=== PATIENT | male | born 1990 | race Two or more races ===

== ENCOUNTER 2021-06-29 22:23 | Emergency (ER) | payer MEDICAID, SELFPAY ==
--- NOTE | ~2021-06-29 | XR_ITS ---
EXAMINATION: 1. LEFT ELBOW 2. LEFT FOREARM. CLINICAL INFORMATION: Injury. Fall. COMPARISON: None TECHNIQUE: 1. Left elbow. 4 views 2. Left forearm. 2 views FINDINGS: 1. Left elbow. No fracture. No dislocation. No joint effusion. 2. Left forearm. No fracture of the radius or ulna. XR/XR elbow LT 2V IMPRESSION: 1. Left elbow. Normal left elbow. 2. Left forearm. Normal left forearm.
--- NOTE | ~2021-06-29 | XR_ITS ---
EXAMINATION: 1. LEFT ELBOW 2. LEFT FOREARM. CLINICAL INFORMATION: Injury. Fall. COMPARISON: None TECHNIQUE: 1. Left elbow. 4 views 2. Left forearm. 2 views FINDINGS: 1. Left elbow. No fracture. No dislocation. No joint effusion. 2. Left forearm. No fracture of the radius or ulna. XR/XR forearm LT 2V IMPRESSION: 1. Left elbow. Normal left elbow. 2. Left forearm. Normal left forearm.
[2021-06-29 22:58] VITALS: BP 128/94; PULSE 93; RESP 18; TEMP 36.3; O2SAT 100; BMI 31.5
--- NOTE | 2021-06-30 | ED_ITS ---
HPI - Extremity Problem General Chief complaint: Extremity Injury, Upper Stated complaint: left elbow pain from sliding Time Seen by Provider: 06/30/21 00:00 History of Present Illness HPI Narrative: Patient complains of left elbow and left forearm pain after falling while snowboarding, no other injury no numbness weakness or tingling Related Data Previous Rx's Medication Instructions Recorded acetaminophen 500 mg tablet 1,000 mg PO QID PRN #30 tab 06/30/21 ibuprofen 600 mg tablet 600 mg PO Q6H PRN #20 tab 06/30/21 oxycodone 5 mg tablet 5 mg PO Q6H PRN #14 tab 06/30/21 Allergies Allergy/AdvReac Type Severity Reaction Status Date / Time animal dander [ANIMAL Allergy Intermediate HIVES Verified 06/30/21 00:10 HAIR] bee pollen [BEE Allergy Unknown SWELLING Verified 06/30/21 00:10 STINGS] bees Allergy Unknown Swelling Uncoded 06/30/21 00:10 fur Allergy Unknown Unknown Uncoded 06/30/21 00:10 Review of Systems Verdana 4l Review of Systems: Verdana 4d Verdana 4d Positive for left elbow and forearm pain Negatives are no headache no head injury no loss of consciousness no neck pain no numbness weakness or tingling no back pain no chest pain no laceration Verdana 4d Yes all other systems are reviewedreviewed and are negative PMFSH Past Medical History Source: nursing notes reviewed Social History Social History Advance Directives: No Physical Exam Verdana 4l Vital Signs: Verdana 4d Verdana 4d Vital Signs: Verdana 4d Verdana 4Bd Last Vital Signs Verdana 4d Produce Department Manager New 4d Produce Department Manager New 4d Temp 97.4 F 06/29/21 22:58 Produce Department Manager New 4d Pulse 93 06/29/21 22:58 Produce Department Manager New 4d Resp 18 06/29/21 22:58 BP 128/94 H 06/29/21 22:58 Pulse Ox 100 06/29/21 22:58 BMI result Body Mass Index 31.5 General appearance is no acute distress Head is normocephalic atraumatic Neck is supple Chest wall is nontender Respiration chest is clear to auscultation bilateral Extremities the left elbow is held in a flexed position and there is tenderness in the posterior elbow, the skin is intact in the arm is neurovascular intact distal Other extremities normal Neuro no focal motor sensory deficits Course Course Course Narrative: Patient with a very painful elbow with a negative x-ray is advised he may have tendon or ligamentous injuries and should follow closely with orthopedist and is discharged with a sling Discharge Plan Discharge Clinical Impression: Sprain of elbow, left Patient Disposition: Home, Self-Care Additional Instructions: X-ray did not show any broken or dislocated bones Follow with orthopedist for further evaluation Return to the ER any time for any worse condition or any concerns Ice may be helpful so apply ice You can use Tylenol and or Motrin as needed which are not narcotics and if pain is not controlled you can use the oxycodone Prescriptions: New acetaminophen 500 mg tablet 1,000 mg PO QID PRN (Reason: pain) Qty: 30 0RF oxycodone 5 mg tablet 5 mg PO Q6H PRN (Reason: pain) Qty: 14 0RF Rx Instructions: Narcotic, no driving for 6 hours after taking this medication ibuprofen 600 mg tablet 600 mg PO Q6H PRN (Reason: pain) Qty: 20 0RF Referrals: Nico Glass MD [Physician] - 2 days (Left elbow sprain)
[2021-06-30] MEDS: oxyCODONE HCl Immed Release 5 MG TABLET 10 MG PO (00:16)
[2021-06-30] MEDS: Ibuprofen 600 MG TABLET PO (00:17)
== END 2021-06-30 00:50 | disposition home or self-care (01) ==
PROVIDERS: Emergency Provider Emergency Medicine
DX: S53.402A Unspecified sprain of left elbow, initial encounter (principal); W17.81XA Fall down embankment (hill), initial encounter; Y93.23 Activity, snow (alpine) (downhill) skiing, snowboarding, sledding, tobogganing and snow tubing; Y92.828 Other wilderness area as the place of occurrence of the external cause; Y99.8 Other external cause status
CPT/HCPCS: 73070; 73090; 99283

== ENCOUNTER 2021-07-12 02:50 | Emergency (ER) | payer MEDICAID, SELFPAY ==
[2021-07-12] MEDS: Ondansetron ODT 4 MG TAB.RAPDIS SUBLINGUAL (02:57)
[2021-07-12 03:06] VITALS: BP 140/80; PULSE 114; RESP 20; TEMP 35.8; O2SAT 97; BMI 32.5
[2021-07-12 03:14] LABS: Basophils Absolute Auto 0.1 X10*3/uL (0.0-0.2); Basophils Percent Auto 0.2 % (0-2); Eosinophils Absolute Auto 0.2 X10*3/uL (0.0-0.4); Eosinophils Percent Auto 0.8 % (0-4); Hematocrit 45.7 % (42.0-52.0); Hemoglobin 15.8 g/dl (14.0-18.0); Imm Gran Abs Auto 0.12 X10*3/uL (0.00-0.03); Imm Gran Pct Auto 0.6 % (0.0-0.4); Lymphocytes Absolute Auto 1.7 X10*3/uL (1.2-4.9); MANUAL DIFF FLAG NO; Mean Corpuscular HGB Conc 34.6 g/dl (31.0-36.0); Mean Corpuscular Hemoglobin 31.2 pg (27.0-33.0); Mean Corpuscular Volume 90.1 fL (80.0-98.0); Mean Platelet Volume 9.4 fL (9.4-12.4); Monocytes Absolute Auto 0.8 X10*3/uL (0.1-1.2); Neutrophils Absolute Auto 18.2 x10*3/uL (2.0-8.3); Neutrophils Percent Auto 86.4 % (45-73); Platelet Count 320 X10*3/uL (160-400); Red Blood Count 5.07 X10*6/uL (4.60-5.80); Red Cell Distribution Width 12.8 % (11.0-16.0)
[2021-07-12 03:29] LABS: COVID-19 Test Negative (Negative)
[2021-07-12 03:37] LABS: Alanine Aminotransferase 30 U/L (0-40); Albumin Level 4.9 g/dL (3.5-5.0); Alkaline Phosphatase 73 U/L (39-117); Anion Gap 20 (12-20); Aspartate Amino Transferase 25 U/L (5-37); Bilirubin Direct 0.2 mg/dL (0.0-0.5); Bilirubin Total 0.7 mg/dL (0.0-1.0); Blood Urea Nitrogen 18 mg/dL (9-16); Calcium 10.1 mg/dL (8.4-10.2); Carbon Dioxide 14 mmol/L (22-29); Chloride 108 mmol/L (96-108); Creatinine Clr Calc Pharmacy 105.7; Estimated Glomerular Filt Rate > 60; Glucose Random 130 mg/dL (60-115); Lipase 150 U/L (8-78); Potassium 4.9 mmol/L (3.3-5.1); Sodium 137 mmol/L (135-145); Total Protein 8.8 g/dL (6.5-8.0)
[2021-07-12 04:28] VITALS: BP 127/79; PULSE 96; RESP 18; TEMP 36.5; O2SAT 100
--- NOTE | 2021-07-12 04:55 | ED.NAVMDI ---
HPI - Nausea/Vomiting/Diarrhea General Chief complaint: Nausea/Vomiting/Diarrhea Stated complaint: diarrhea, vomiting Time Seen by Provider: 07/12/21 04:16 Source: patient Mode of arrival: ambulatory Limitations: no limitations History of Present Illness HPI Narrative: 30-year-old male who presents emergency department for evaluation of nausea, vomiting, diarrhea and weakness. Patient states that he has been sick for approximately 2 days. States that he has been moving his bowels every 10 minutes. He describes the diarrhea as watery and brown, he has not noticed any blood in the diarrhea. He also states he has been vomiting more than 10 times a day. He has not noticed any blood in the emesis. He states that he had chills but denied fever. He has had a slight cough with some slight shortness of breath. States that he is having upper abdominal pain which she describes as a constant, cramping sensation which waxes and wanes in intensity from 5/10 to 10/10. The patient states that his is also feeling ill but has not had vomiting or diarrhea. He is down traveled outside of the country. He states that he took a 5 day course of amoxicillin approximately 3 weeks prior. This medication was not prescribed to him that this medication was from a leftover prescription and he took it for sore throat. He is also complaining of right ear pain. MD elicited complaint: nausea, vomiting and diarrhea Related Data Previous Rx's Medication Instructions Recorded acetaminophen 500 mg tablet 1,000 mg PO QID PRN #30 tab 06/30/21 ibuprofen 600 mg tablet 600 mg PO Q6H PRN #20 tab 06/30/21 oxycodone 5 mg tablet 5 mg PO Q6H PRN #14 tab 06/30/21 ondansetron 4 mg disintegrating 4 mg PO Q6-8H PRN #14 tab 07/12/21 tablet Allergies Allergy/AdvReac Type Severity Reaction Status Date / Time animal dander [ANIMAL HAIR] Allergy Intermediate HIVES Verified 07/12/21 02:56 bee pollen [BEE STINGS] Allergy Unknown SWELLING Verified 07/12/21 02:56 bees Allergy Unknown Swelling Uncoded 07/12/21 02:56 fur Allergy Unknown Unknown Uncoded 07/12/21 02:56 Review of Systems Review of Systems: Yes all other systems are reviewed and are negative [facility] Past Medical History [facility] Narrative: Past medical history: Bronchitis. Past surgical history: None. Social history: The patient smokes 1 pack of cigarettes per day times 14 years. States that he occasionally drinks alcohol. He states he smokes marijuana daily. He was smoking 10-20 times a day but he has now cut down to 1 to 2 times a day. Medical History No known health problems Social History Social History Advance Directives: No Advance Directives Information Provided: Yes Physical Exam Vital Signs: Vital Signs: Last Vital Signs Temp 97.7 F 07/12/21 04:28 Pulse 93 07/12/21 06:07 Resp 16 07/12/21 06:07 BP 131/94 H 07/12/21 06:07 Pulse Ox 98 07/12/21 06:07 BMI result Body Mass Index 32.5 Const: General: cooperative and no acute distress Orientation/consciousness: oriented to person and oriented to place Limitations: no limitations HENMT: Head: Yes normal to inspection, Yes normocephalic and Yes atraumatic Ears: external ears normal and TM's normal bilaterally General nose exam: Normal external nose present Face and sinus: Yes normal facial exam Mouth: Normal oral and palatal mucosa present Throat: Yes posterior oropharynx normal Eyes: General: appearance normal, both eyes and all related structures Pupils: Equal, round and reactive pupils present Neck: Neck: Yes normal visual inspection, Yes no lymphadenopathy, Yes trachea midline and Yes supple Chest: Chest palpation & inspection: normal inspection of the chest and normal palpation of entire chest wall Resp: Effort & Inspection: normal respiratory effort and able to speak in complete sentences Auscultation: clear to auscultation bilaterally Cardio: Rate: regular rate Rhythm: regular rhythm Heart sounds: S1 normal heart sound present, S2 normal heart sound present and no murmurs GI: Inspection: Yes normal to inspection Palpation (GI): Soft to palpation, nontender and no guarding Auscultation: normal bowel sounds : General: Yes no CVA tenderness Back/Spine/Pelvis: Back: no CVA tenderness Skin: General skin exam: no rashes or lesions noted Neuro: General: oriented to person and oriented to place Cranial nerves: Yes CN's II-XII intact bilaterally and Yes Equal, round and reactive pupils present Cognition (Neuro): normal cognition Motor exam (neuro): 5/5 motor strength present throughout Extrem: General: Yes normal to inspection Psych: Appearance: grossly normal Speech and movement: Normal speech and movement present Affect: normal affect Attitude: cooperative Thought process: Normal thought process present Thought content: Normal thought content present Course Course Course Narrative: 30-year-old male who presents emergency department for evaluation of 2 days of nausea, vomiting and diarrhea. Patient has been vomiting greater than 10 times per day he has had greater than 20 bowel movements per day. There has been no blood in the diarrhea or emesis. The patient has not traveled anywhere recently. He did take antibiotics approximately 2-3 weeks prior for sore throat. His is been ill but not with vomiting or diarrhea. Patient's physical examination was unremarkable. Laboratory evaluation did reveal low bicarb of 14 and elevated glucose of 18. Patient's differential includes but is not limited to viral gastroenteritis, C difficile colitis, cannabis hyperemesis syndrome. I did order normal saline x2 L, Toradol 15 mg IV x1 and Zofran 4 mg IV x1. I will obtain a stool sample for culture and for C diff testing. 0633: The patient was unable to give us a stool sample after trying to her 3 times patient states he is feeling better after the above treatment. The patient will complete his 2 L of normal saline and then be discharged home. Patient was given printed and verbal instructions regarding viral syndrome, vomiting and diarrhea. He was given a prescription for Zofran ODT 4 mg every 6-8 hours he was also advised to take Imodium. MDM - Nausea/Vomiting/Diarrhea Lab Data Result diagrams: 07/12/21 03:04 07/12/21 03:04 Labs: Lab Results 07/12/21 07/12/21 07/12/21 Range/Units 03:04 03:04 03:04 WBC 21.0 H (4.8-10.8) X10*3/uL RBC 5.07 (4.60-5.80) X10*6/uL Hgb 15.8 (14.0-18.0) g/dl Hct 45.7 (42.0-52.0) % MCV 90.1 (80.0-98.0) fL MCH 31.2 (27.0-33.0) pg MCHC 34.6 (31.0-36.0) g/dl RDW 12.8 (11.0-16.0) % Plt Count 320 (160-400) X10*3/uL MPV 9.4 (9.4-12.4) fL Immature Gran % (Auto) 0.6 H (0.0-0.4) % Neut % (Auto) 86.4 H (45-73) % Lymph % (Auto) 8.0 L (20-40) % Grimes % (Auto) 4.0 (2-11) % Eos % (Auto) 0.8 (0-4) % Baso % (Auto) 0.2 (0-2) % Lymph # (Auto) 1.7 (1.2-4.9) X10*3/uL Grimes # (Auto) 0.8 (0.1-1.2) X10*3/uL Eos # (Auto) 0.2 (0.0-0.4) X10*3/uL Baso # (Auto) 0.1 (0.0-0.2) X10*3/uL Abs Immat Gran (auto) 0.12 H (0.00-0.03) X10*3/uL Absolute Neuts (auto) 18.2 H (2.0-8.3) x10*3/uL Absolute Nucleated RBC 0.000 (0.0-0.012) X10*3/uL Nucleated RBC % (auto) 0.0 (0.0-0.2) /100WBC Sodium 137 (135-145) mmol/L Potassium 4.9 (3.3-5.1) mmol/L Chloride 108 (96-108) mmol/L Carbon Dioxide 14 L (22-29) mmol/L Anion Gap 20 (12-20) BUN 18 H (9-16) mg/dL Creatinine 1.19 (0.5-1.4) mg/dL Estim Creat Clear Calc 105.7 Estimated GFR > 60 Random Glucose 130 H (60-115) mg/dL Calcium 10.1 (8.4-10.2) mg/dL Total Bilirubin 0.7 (0.0-1.0) mg/dL Direct Bilirubin 0.2 (0.0-0.5) mg/dL AST 25 (5-37) U/L ALT 30 (0-40) U/L Alkaline Phosphatase 73 (39-117) U/L Total Protein 8.8 H (6.5-8.0) g/dL Albumin 4.9 (3.5-5.0) g/dL Lipase 150 H (8-78) U/L COVID-19 (MELIDA) Negative (Negative) COVID-19 Clin Com See Note Discharge Plan Discharge Clinical Impression: Acute dehydration Vomiting Qualifiers: Vomiting type: unspecified Nausea presence: with nausea Qualified Code(s): R11.2 - Nausea with vomiting, unspecified Diarrhea Qualifiers: Diarrhea type: unspecified type Qualified Code(s): R19.7 - Diarrhea, unspecified Abdominal pain Qualifiers: Abdominal location: generalized Qualified Code(s): R10.84 - Generalized abdominal pain Patient Disposition: Home, Self-Care Instructions: Acute Nausea and Vomiting (ED), Acute Diarrhea (ED) Additional Instructions: Increase your fluid intake, drink small amounts of fluid frequently Throughout the day today and tomorrow. Try a emma diet (bananas, rice, applesauce, tea and toast for the next 24 hours). Take Zofran ODT 4 mg pills, 1 pill dissolved in your mouth every 8 hours as needed for nausea and vomiting. Take ibuprofen 200 mg pills, 3 pills every 6 hours as needed for pain. Take Tylenol (acetaminophen) 500 mg pills, 2 pills every 4 to 6 hours as needed for pain. Take Imodium as directed on the box for diarrhea. Follow-up with your doctor in 2 days. Please return to the emergency department if your symptoms get worse or if you develop any symptoms that are concerning to you. Prescriptions: New ondansetron 4 mg tablet,disintegrating 4 mg PO Q6-8H PRN (Reason: nausea and vomiting) Qty: 14 0RF No Action acetaminophen 500 mg tablet 1,000 mg PO QID PRN (Reason: pain) Qty: 30 0RF oxycodone 5 mg tablet 5 mg PO Q6H PRN (Reason: pain) Qty: 14 0RF Rx Instructions: Narcotic, no driving for 6 hours after taking this medication ibuprofen 600 mg tablet 600 mg PO Q6H PRN (Reason: pain) Qty: 20 0RF
[2021-07-12] MEDS: ondansetron HCL 4 MG/2 ML VIAL IVPUSH (05:05)
[2021-07-12] MEDS: Ketorolac Tromethamine 15 MG/ML VIAL IVPUSH (05:07)
[2021-07-12] MEDS: 0.9 % Sodium Chloride 1,000 ML 999 ML IV ×2 (05:10→06:10)
[2021-07-12 06:07] VITALS: BP 131/94; PULSE 93; RESP 16; O2SAT 98
== END 2021-07-12 07:11 | disposition home or self-care (01) ==
PROVIDERS: Emergency Provider Emergency Medicine Emergency Medical Services
DX: E86.0 Dehydration (principal); R11.2 Nausea with vomiting, unspecified; R19.7 Diarrhea, unspecified; R10.84 Generalized abdominal pain; Z20.822 Contact with and (suspected) exposure to COVID-19; Z79.899 Other long term (current) drug therapy
CPT/HCPCS: 36415; 80048; 80076; 83690; 85025; 87635; 96374; 96375; 99284; J1885; J2405

== ENCOUNTER → 2022-02-25 11:36 | Outpatient (BNVA) | payer MEDICAID, SELFPAY | PROVIDERS: Visit Provider Surgery | DX: K64.9 Unspecified hemorrhoids (principal) | CPT/HCPCS: 46600; 99202 ==

== ENCOUNTER 2022-05-05 02:23 | Emergency (ER) | payer MEDICAID, SELFPAY ==
[2022-05-05 02:29] VITALS: BP 140/95; PULSE 94; RESP 18; TEMP 36.3; O2SAT 97; BMI 31.5
[2022-05-05 02:53] LABS: MANUAL DIFF FLAG NO
[2022-05-05 02:55] LABS: Basophils Absolute Auto 0.1 X10*3/uL (0.0-0.2); Basophils Percent Auto 0.6 % (0-2); Eosinophils Absolute Auto 0.6 X10*3/uL (0.0-0.4); Eosinophils Percent Auto 4.4 % (0-4); Hematocrit 44.6 % (42.0-52.0); Hemoglobin 15.3 g/dl (14.0-18.0); Imm Gran Abs Auto 0.04 X10*3/uL (0.00-0.03); Imm Gran Pct Auto 0.3 % (0.0-0.4); Lymphocytes Absolute Auto 4.5 X10*3/uL (1.2-4.9); Lymphocytes Percent Auto 35.6 % (20-40); Mean Corpuscular HGB Conc 34.3 g/dl (31.0-36.0); Mean Corpuscular Hemoglobin 31.2 pg (27.0-33.0); Mean Corpuscular Volume 90.8 fL (80.0-98.0); Mean Platelet Volume 9.7 fL (9.4-12.4); Monocytes Absolute Auto 1.1 X10*3/uL (0.1-1.2); Neutrophils Absolute Auto 6.3 x10*3/uL (2.0-8.3); Neutrophils Percent Auto 50.1 % (45-73); Platelet Count 307 X10*3/uL (160-400); Red Blood Count 4.91 X10*6/uL (4.60-5.80); Red Cell Distribution Width 12.3 % (11.0-16.0); White Blood Count 12.5 X10*3/uL (4.8-10.8)
--- OUTSIDE RECORDS SUMMARY | 2022-05-05 02:56 | XMS_ITS | Continuity of Care Document ---
:1990 Author Organization [facility] Address [address] [place] [address]- Care Team Providers Name Role Phone Not on Staff, PCP Primary Care Physician Unavailable Encounter [facility] NBR [id number] Date(s): 03/11/22 - 03/12/22 [facility] [address] [place] [address]- Encounter Diagnosis Flank pain (Final) - 03/12/22 Discharge Disposition: A-D/C Home Attending Physician: Chris Ko DO Admitting Physician: Chris Ko DO Referring Physician: Not on Staff, Referring MD Allergies, Adverse Reactions, Alerts No Known Medication Allergies Substance Reaction Severity Status Bee Stings Angioedema Active Immunizations Given and Recorded Vaccine Date Status Refusal Reason Hepatitis B Vaccine (old term) 07/28/05 Given Hepatitis B Vaccine (old term) 07/24/04 Given Hepatitis B Vaccine (old term) 09/05/03 Given tetanus-diphtheria toxoids (Td) 09/05/03 Given Varicella Virus Vaccine1 09/27/96 Given Diphth/Pertussis,Acel/Tetanus (oldterm) 09/15/95 Given Diphth/Pertussis,Acel/Tetanus (oldterm)2 03/30/92 Given Diphth/Pertussis,Acel/Tetanus (oldterm)3 03/30/91 Given Diphth/Pertussis,Acel/Tetanus (oldterm)4 01/28/91 Given Diphth/Pertussis,Acel/Tetanus (oldterm)5 90 Given Measles/Mumps/Rubella Virus Vaccine6 02/27/95 Given Measles/Mumps/Rubella Virus Vaccine7 03/30/92 Given Miscellaneous Vaccine8 02/27/95 Given Miscellaneous Vaccine9 03/30/92 Given Miscellaneous Zzltcvv34 01/28/91 Given Miscellaneous Mwugtls69 90 Given Haemophilus B Conj Vaccine (oldterm)12 11/1/92 Given Haemophilus B Conj Vaccine (oldterm)13 03/30/91 Given Haemophilus B Conj Vaccine (oldterm)14 01/28/91 Given Haemophilus B Conj Vaccine (oldterm)15 90 Given 1Admin Note: day mhuiqxn2Zrriv Note: day ekihlj1Mpvfc Note: day bblegav2Mymvq Note: day innfdel3Ffets Note: day wlkfjjc2Qyfel Note: day kvjbhrm4Xmmnr Note: day xyspokw9Qitcs Note: POLIO(oral) day pvlmwnk4Nmbsi Note: POLIO(oral) day xdfifld18Kvbst Note: POLIO(oral) day zfzfebd86Ebgqe Note: POLIO(oral) day tocotjp26Bapuo Note: day uvhlygi58Xyaiu Note: day sujiyvz98Unfvf Note: day jcuofxm51Iusle Note: day unknown Medications Abreva 10% topical cream 1 applicator, Topically, 5 times a day, to affected area, # 1 units, 0 Refills Start Date: 03/12/09 Status: OrderedBactrim DS 800 mg-160 mg oral tablet 2 tablet, By Mouth, 2 times a day, # 28 tablet, 0 Refills, Maintenance Start Date: 12/19/10 Stop Date: 12/26/10 Status: Orderedclindamycin 300 mg oral capsule 1 capsule = 300 mg, By Mouth, Every 6 hours, # 56 capsule, 0 Refills, Maintenance, Capsule Start Date: 12/15/09 Stop Date: 12/29/09 Status: Orderedcyclobenzaprine 5 mg oral tablet 1 tablet = 5 mg, By Mouth, 3 times a day, for 7 days, # 21 tablet, 0 Refills, Acute 03/19/22 5:08:00EDT, 03/12/22 5:08:00 EDT, Tablet, [facility]/pharmacy #[id number], Partial fill upon patient request if the prescription is for a schedule II opioid drug., 178, c... Start Date: 03/12/22 Stop Date: 03/19/22 Status: Ordereddocusate sodium 150 mg/15 ml oral liquid 10 mL = 100 mg, By Mouth, Daily at bedtime, # 300 mL, 0 Refills, Maintenance, Liquid Start Date: 12/19/09 Status: OrderedHycodan oral syrup 5 mL, By Mouth, Every 4 hours, PRN Cough, do not drink alcohol or take Nyquil with this. this is a narcotic. do not drive., # 60 mL, 0 Refills, Maintenance Start Date: 04/22/11 Status: Orderedibuprofen 600 mg oral tablet 600 mg, 1, tablet, By Mouth, Every 8 hours, PRN, for 10 days, # 50 tablet, Refills 0, Tot. Refills 0, Acute 03/22/22 5:01:00 EDT, as needed for pain, 03/12/22 5:01:00 EDT, Route to Pharmacy Electronically, [facility]/pharmacy #[id number], Partial fill upon patient... Start Date: 03/12/22 Stop Date: 03/22/22 Status: OrderedKeflex monohydrate 250 mg oral capsule 1 capsule = 250 mg, By Mouth, 4 times a day, # 28 capsule, 0 Refills, Maintenance Start Date: 12/19/10 Stop Date: 12/26/10 Status: Orderedlidocaine 5% topical ointment 1 application, Topically, 3 times a day, for 10 days, # 30 Gm, 0 Refills, Acute 03/22/22 5:01:00 EDT, 03/12/22 5:01:00 EDT, Ointment, [facility]/pharmacy #[id number], Partial fill upon patient request if the prescription is for a schedule II opioid drug., 1 applic... Start Date: 03/12/22 Stop Date: 03/22/22 Status: Orderedoxycodone 5 mg/5 ml oral solution 5 mL = 5 mg, By Mouth, Every 4 hours, # 400 mL, 0 Refills, Maintenance Start Date: 12/23/09 Status: Orderedpenicillin V potassium 250 mg/5 ml oral 10 mL = 500 mg, By Mouth, 4 times a day, # 400 mL, 0 Refills, Maintenance, REC Powder Start Date: 12/19/09 Stop Date: 12/29/09 Status: OrderedPercocet-5/325 325 mg-5 mg oral tablet 2 tablet, By Mouth, Every 6 hours, PRN Pain, # 10 tablet, 0 Refills, Maintenance, Tablet Start Date: 12/15/09 Status: OrderedPercocet-5/325 325 mg-5 mg oral tablet 1 tablet, By Mouth, Every 4 hours, PRN Pain, # 5 tablet, 0 Refills, Maintenance, Tablet Start Date: 02/26/10 Status: Orderedpermethrin topical 5% cream See Instructions, 1 applicator Topically Once to skin (head to feet), remove by washing after 8 to 14 hours, # 1 application, 1 Refills, Maintenance, Cream Start Date: 04/25/10 Status: OrderedRoxicet 325 mg-5 mg/5 ml oral solution 10 mL, By Mouth, Every 4 hours, PRN Pain, # 400 mL, 0 Refills, Maintenance, oral solution Start Date: 12/19/09 Status: OrderedZithromax 250 mg oral tablet 1 tablet = 250 mg, By Mouth, Daily, start early Tuesday AM, # 4 tablet, 0 Refills, Maintenance Start Date: 04/22/11 Stop Date: 04/26/11 Status: Ordered Problem List Condition Confirmation Course Effective Dates Status Health Stat us Informant Obese class I Confirmed Active Vital Signs Most recent to oldest 1 2 3 [Reference Range]: Height 178 cm 178 cm 178 cm (03/12/22 5:24 AM) (03/12/22 4:49 AM) (03/12/22 2:01 AM) Weight 101.5 kg 101.5 kg 101.5 kg (03/12/22 5:24 AM) (03/12/22 4:49 AM) (03/12/22 2:01 AM) Oxygen Saturation [94-100 98 % 97 % 96 % %] (03/12/22 5:24 AM) (03/12/22 4:49 AM) (03/12/22 2:01 AM) Pulse Rate [55-90 bpm] 73 bpm 71 bpm 72 bpm (03/12/22 5:24 AM) (03/12/22 4:49 AM) (03/12/22 2:01 AM) Body Mass Index 32.04 kg/m2 32.04 kg/m2 32.04 kg/m2 [18.5-24.99 kg/m2] *>HHI* *>HHI* *>HHI* (03/12/22 4:49 AM) (03/12/22 2:01 AM) (03/11/22 11:01 PM) Blood Pressure 133/86 mm Hg 131/89 mm Hg 140/92 mm Hg [90-138/55-84 mm Hg] (03/12/22 4:49 AM) (03/12/22 2:01 AM) *H* (03/11/22 11:01 PM) Respiratory Rate [16-30 18 br/min 17 br/min 19 br/mi n br/min] (03/12/22 5:24 AM) (03/12/22 4:49 AM) (03/12/22 2:01 AM) Temperature [96.8-100.4 98 DegF 98.0 DegF 98.1 Deg F DegF] (03/12/22 5:24 AM) (03/12/22 2:01 AM) (03/11/22 11:01 PM) Liters per Minute 0 L/min 0 L/min (03/12/22 4:49 AM) (03/12/22 2:01 AM) Mode of Delivery (Oxygen) Room air Room air Room a ir (03/12/22 5:24 AM) (03/12/22 4:49 AM) (03/12/22 2:01 AM) Blood pressure sites Arm, right Arm, left Arm, right (03/12/22 4:49 AM) (03/12/22 2:01 AM) (03/11/22 11:01 PM) Temperature Route Oral Oral Oral (03/12/22 5:24 AM) (03/12/22 2:01 AM) (03/11/22 11:01 PM) Dry Weight 101.5 kg 101.5 kg 101.5 kg (03/12/22 5:24 AM) (03/12/22 4:49 AM) (03/12/22 2:01 AM) Weight Obtained Via Standing scale (03/11/22 11:01 PM) Dry Weight Obtained Via Standing scale (03/11/22 11:01 PM) Social History Social History Type Response Smoking Status 5-9 cigarettes (between 1/4 to 1/2 pack)/day in last 30 days entered on: 03/11/22 Sex Patient Care team information PersonnelName: Not on Staff, PCP
--- OUTSIDE RECORDS SUMMARY | 2022-05-05 02:56 | XMS_ITS | Continuity of Care Document ---
:1990 Author Organization [facility] Address [address] [place] [address]- Care Team Providers Name Role Phone Not on Staff, PCP Primary Care Physician Unavailable Encounter [facility] Date(s): 06/01/21 - 06/02/[address] [address]- Encounter Diagnosis COVID (Final) - 06/01/21 Discharge Disposition: A-D/C Walkout Attending Physician: Not on Staff, Attending MD Admitting Physician: Not on Staff, Admitting MD Referring Physician: Not on Staff, Referring MD Allergies, Adverse Reactions, Alerts Substance Reaction Severity Status Bee Stings Angioedema [...] 02/27/95 Given Miscellaneous Vaccine9 03/30/92 Given Miscellaneous Gjxxjfo99 01/28/91 Given Miscellaneous Bcxtulp99 90 Given Haemophilus B Conj Vaccine (oldterm)12 03/30/92 Given Haemophilus B Conj Vaccine (oldterm)13 03/30/91 Given Haemophilus B Conj Vaccine (oldterm)14 01/28/91 Given Haemophilus B Conj Vaccine (oldterm)15 90 Given 1Admin Note: day ildlqmj3Vtmpf Note: day ttnbhf8Ejhok Note: day tktzlgr1Xrbeb Note: day kygufuz4Vbpuu Note: day bmeuwwl9Crkqk Note: day hpoqyiv4Ocdgl Note: day dchsikh6Rtfwj Note: POLIO(oral) day gqoxxtm3Crleo Note: POLIO(oral) day qtzecxm05Xliwk Note: POLIO(oral) day jtagbyo81Fjpjl Note: POLIO(oral) day zwqbagq65Iiabc Note: day mlymtub05Movhj Note: day pgatwgk60Qrprh Note: day zjmcxsa47Odwyv Note: day unknown Medications Abreva 10% topical [...] Start Date: 12/15/09 Stop Date: 12/29/09 Status: Ordereddocusate sodium 150 mg/15 ml oral [...] 0 Refills, Maintenance Start Date: 04/22/11 Status: OrderedKeflex monohydrate 250 mg oral capsule 1 capsule = 250 mg, By Mouth, 4 times a day, # 28 capsule, 0 Refills, Maintenance Start Date: 12/19/10 Stop Date: 12/26/10 Status: Orderedoxycodone 5 mg/5 ml oral solution [...] Date: 04/22/11 Stop Date: 04/26/11 Status: Ordered Vital Signs Most recent to oldest [Reference 1 2 3 Range]: Weight 410 kg (06/01/21 6:16 PM) Oxygen Saturation [94-100 %] 100 % 100 % 99 % (06/01/21 9:00 PM) (06/01/21 6:16 PM) (06/01/21 5:32 P M) Pulse Rate [55-90 bpm] 70 bpm 82 bpm 87 bpm (06/01/21 9:00 PM) (06/01/21 6:16 PM) (06/01/21 5:32 P M) Blood Pressure [90-138/55-84 mm 132/79 mm Hg 133/93 mm Hg Hg] (06/01/21 9:00 PM) (06/01/21 6:16 PM) Respiratory Rate [16-30 br/min] 16 br/min 18 br/min 18 br/min (06/01/21 9:00 PM) (06/01/21 6:16 PM) (06/01/21 5:32 P M) Temperature [96.8-100.4 DegF] 98.3 DegF 98.9 DegF (06/01/21 9:00 PM) (06/01/21 6:16 PM) Mode of Delivery (Oxygen) Room air Room air Room a ir (06/01/21 9:00 PM) (06/01/21 6:16 PM) (06/01/21 5:32 P M) Blood pressure sites Arm, left (06/01/21 6:16 PM) Temperature Route Oral Oral (06/01/21 9:00 PM) (06/01/21 6:16 PM)
--- OUTSIDE RECORDS SUMMARY | 2022-05-05 02:56 | XMS_ITS | Continuity of Care Document ---
:1990 Author Organization [facility] Address [address] [place] [address]- Care Team Providers Name Role Phone Not on Staff, PCP Primary Care Physician Unavailable Encounter [facility] Date(s): 03/28/21 - 03/28/[address] [id number]- Discharge Disposition: A-D/C Home Attending Physician: Alexia Llanes MD Admitting Physician: Alexia Llanes MD Referring Physician: Not on Staff, Referring [...] 02/27/95 Given Miscellaneous Vaccine9 03/30/92 Given Miscellaneous Nxsfrhh26 01/28/91 Given Miscellaneous Quqpfll91 90 Given Haemophilus B Conj Vaccine (oldterm)12 03/30/92 Given Haemophilus B Conj Vaccine (oldterm)13 03/30/91 Given Haemophilus B Conj Vaccine (oldterm)14 01/28/91 Given Haemophilus B Conj Vaccine (oldterm)15 90 Given 1Admin Note: day jcmaedo3Wtvtq Note: day ijhpzg2Mjmzx Note: day zasvzaf1Lbdsm Note: day inssfxh0Myqzw Note: day grhskav6Ledfq Note: day dsqxtka3Kniio Note: day fxbzsag4Hixir Note: POLIO(oral) day qaycrdu0Poczp Note: POLIO(oral) day cxheoev25Oqzar Note: POLIO(oral) day unmnjor86Fjdra Note: POLIO(oral) day dkhtsho97Figxa Note: day ohjlylj64Nhvsp Note: day aqrilrg38Hqgwn Note: day eijbrui53Ipugu Note: day unknown Medications Abreva 10% topical [...] Date: 04/22/11 Stop Date: 04/26/11 Status: Ordered Results Radiology Reports Exam Date Time Procedure Performing Provider Status 03/28/21 5:37 PM Chest Portable Tam Burch ([facility] ed) Notes:(Chest Portable) Reason For Exam: Fever/Increased White CountRESULT: Chest Portable Examination: Portable chest performed on 03/28/2021. History: Increased white count. Possible COVID. Findings: A frontal view of the chest is compared to a prior study dated 02/28/10. The cardiac and mediastinal silhouettes are within normal limits. The lungs are clear. The osseous and soft tissue structures are unremarkable. IMPRESSION: There is no acute cardiopulmonary disease. WSN: [id number] Ordering Physician: Bryant Chambers Dictated By: Valerie Batista MD Dictated Date/Time: 03/28/21 5:48 pm Reviewed By: Valerie Batista MD Signed By: Valerie Batista MD Signed Date/Time: 03/28/21 5:48 pm Transcribed By: ITZEL Transcribed Date/Time: 03/28/21 5:47 pm Vital Signs Most recent to oldest [Reference Range]: 1 2 Oxygen Saturation [94-100 %] 98 % 99 % (03/28/21 2:08 PM) (03/28/21 1:57 PM) Pulse Rate [55-90 bpm] 90 bpm 116 bpm (03/28/21 2:08 PM) *H* (03/28/21 1:57 PM) Blood Pressure [90-138/55-84 mm Hg] 127/84 mm Hg (03/28/21 2:08 PM) Respiratory Rate [16-30 br/min] 18 br/min (03/28/21 2:08 PM) Temperature [96.8-100.4 DegF] 98.1 DegF (03/28/21 2:08 PM) Mode of Delivery (Oxygen) Room air Room air (03/28/21 2:08 PM) (03/28/21 1:57 PM) Blood pressure sites Arm, left (03/28/21 2:08 PM) Temperature Route Oral (03/28/21 2:08 PM) Weight Obtained Via uto (03/28/21 2:08 PM) Dry Weight Obtained Via uto (03/28/21 2:08 PM)
--- OUTSIDE RECORDS SUMMARY | 2022-05-05 02:56 | XMS_ITS | Continuity of Care Document ---
:1990 Author Organization [facility] Address [address] [place] [address]- Care Team Providers Name Role Phone Not on Staff, PCP Primary Care Physician Unavailable Encounter [facility] Date(s): 01/28/21 - 01/29/21 [facility] [address] [place] [id number]- Discharge Disposition: A-D/C Home Attending Physician: Corazon Zamudio MD Admitting Physician: Corazon Zamudio MD Referring Physician: Not on Staff, Referring [...] 02/27/95 Given Miscellaneous Vaccine9 03/30/92 Given Miscellaneous Uqnaeey09 01/28/91 Given Miscellaneous Xhzvjeb91 90 Given Haemophilus B Conj Vaccine (oldterm)12 03/30/92 Given Haemophilus B Conj Vaccine (oldterm)13 03/30/91 Given Haemophilus B Conj Vaccine (oldterm)14 01/28/91 Given Haemophilus B Conj Vaccine (oldterm)15 90 Given 1Admin Note: day bzlbisc4Nhgin Note: day gukwls3Ajmlv Note: day kononrt6Gjpxr Note: day ncdlxus0Xptyr Note: day juwxtsi8Ehlit Note: day kqvoukb6Jqzlu Note: day oopkflb1Objyg Note: POLIO(oral) day jkhfuch4Yflhk Note: POLIO(oral) day ybwotgy64Vnpjz Note: POLIO(oral) day svlorby22Junap Note: POLIO(oral) day rslrspm96Ugveu Note: day fqsvnpj03Vvvmp Note: day lvfpula70Hkgdp Note: day kbowikg51Qeohm Note: day unknown Medications Abreva 10% topical [...] Ordered Vital Signs Most recent to oldest 1 2 3 [Reference Range]: Oxygen Saturation [94-100 %] 98 % 98 % 100 % (01/29/21 1:57 AM) (01/29/21 12:54 AM) (01/29/21 12:21 AM) Pulse Rate [55-90 bpm] 77 bpm 85 bpm 102 bpm (01/29/21 1:57 AM) (01/29/21 12:54 AM) *H* (01/29/21 12:21 AM ) Blood Pressure [90-138/55-84 mm 145/68 mm Hg 149/75 mm Hg 154/82 mm Hg Hg] *H* *H* *H* (01/29/21 1:57 AM) (01/29/21 12:54 AM) (01/29/21 12:21 AM) Respiratory Rate [16-30 br/min] 20 br/min 18 br/min 20 br/min (01/29/21 1:57 AM) (01/29/21 12:54 AM) (01/29/21 12:21 AM) Temperature [96.8-100.4 DegF] 98.0 DegF 98.6 DegF (01/29/21 12:21 AM) (01/28/21 3:41 PM) Mode of Delivery (Oxygen) Room air Room air Room a ir (01/29/21 1:57 AM) (01/29/21 12:54 AM) (01/29/21 12:21 AM) Blood pressure sites Arm, left (01/28/21 3:41 PM) Temperature Route Oral Oral (01/29/21 12:21 AM) (01/28/21 3:41 PM)
[2022-05-05 03:21] LABS: Alanine Aminotransferase 23 U/L (0-40); Albumin Level 4.8 g/dL (3.5-5.0); Alkaline Phosphatase 83 U/L (39-117); Anion Gap 15 (12-20); Aspartate Amino Transferase 17 U/L (5-37); Bilirubin Direct < 0.2 mg/dL (0.0-0.5); Bilirubin Total 0.2 mg/dL (0.0-1.0); Blood Urea Nitrogen 11 mg/dL (9-16); Carbon Dioxide 25 mmol/L (22-29); Chloride 107 mmol/L (96-108); Creatinine Clr Calc Pharmacy 119.5; Estimated Glomerular Filt Rate > 60; Glucose Random 89 mg/dL (60-115); Lipase 23 U/L (8-78); Sodium 142 mmol/L (135-145); Total Protein 8.1 g/dL (6.5-8.0)
--- NOTE | 2022-05-05 03:36 | ED.MALEGU ---
HPI - Male Genitourinary General Chief complaint: Urogenital-Male Stated complaint: abdominal pain Time Seen by Provider: 05/05/22 02:59 Source: patient Mode of arrival: ambulatory Limitations: no limitations History of Present Illness HPI Narrative: 39-year-old male came in for evaluation of abdominal pain. Patient is been having chronic abdominal pain for the past few months had several evaluation for his abdominal pain at different hospital if with unremarkable CT of the abdomen and pelvis as reported by the patient, patient is already scheduled to see a reconciliation machine operator next month for evaluation of his chronic abdominal pain. Pain is localized to the left lower quadrant area with no radiation described as a dull aching pain that has been constant moderate 5/10 in severity, normal urination was no dysuria or frequency, no diarrhea, no bloody stool. No fever. Patient admitted that he had unprotected oral sex about month ago and he is concern of sexually transmitted disease patient was tested once in the past and he was negative. Related Data Previous Rx's Medication Instructions Recorded acetaminophen 500 mg tablet 1,000 mg PO QID PRN pain #30 tabs 06/30/21 ibuprofen 600 mg tablet 600 mg PO Q6H PRN pain #20 tabs 06/30/21 ondansetron 4 mg disintegrating 4 mg PO Q6-8H PRN nausea and 07/12/21 tablet vomiting #14 tabs Allergies Allergy/AdvReac Type Severity Reaction Status Date / Time animal dander [ANIMAL HAIR] Allergy Intermediate HIVES Verified 05/05/22 02:35 bee pollen [BEE STINGS] Allergy Unknown SWELLING Verified 05/05/22 02:35 bees Allergy Unknown Swelling Uncoded 02/25/22 11:43 fur Allergy Unknown Unknown Uncoded 02/25/22 11:43 Review of Systems Review of Systems: All other systems are reviewed and are negative Constitutional: Reports as per HPI and Reports no additional constitutional complaints Eyes: Reports as per HPI and Reports no additional eye complaints Reports system reviewed and no additional complaints, except as documented Cardiovascular: Reports as per HPI and Reports no additional cardiovascular complaints Respiratory: Reports as per HPI and Reports no additional respiratory complaints Gastrointestinal: Reports as per HPI and Reports no additional gastrointestinal complaints Genitourinary: Reports no additional female genitourinary complaints Musculoskeletal: Reports no additional musculoskeletal complaints Skin/Breast: Reports system reviewed and no additional complaints, except as docu Psychiatric: Reports no additional psychiatric complaints Endocrine: Reports no additional endocrine complaints Hematologic/Lymphatic: Reports no additional hematologic/lymphatic complaints Allergic/Immunologic: Reports no additional allergic/immunologic complaints Reports system reviewed and no additional complaints, except as documented and Reports Abnormal speech present [facility] Past Medical History Medical History Bleeding hemorrhoids No known health problems Surgical History History of mandibular surgery Family History Family History Father Lymphoma Social History Social History Alcohol intake: never Patient Tobacco Use Status: Current everyday Tobacco user Smoked in Last 30 Days: Yes Substance Use Type: Marijuana Substance Use Frequency: Occasionally Advance Directives: No Advance Directives Information Provided: No Physical Exam Vital Signs: Vital Signs: Last Vital Signs Temp 98.3 F 05/05/22 06:00 Pulse 68 05/05/22 06:00 Resp 16 05/05/22 06:00 BP 138/93 H 05/05/22 06:00 Pulse Ox 97 05/05/22 06:00 O2 Del Method 05/05/22 06:00 BMI result Body Mass Index 31.5 Vital signs have been reviewed as appeared to be correct. Blood pressure normal. Heart rate normal. Respiration rate normal. Temperature normal. Oxygen saturation normal. Appearance: Alert. Oriented X3. No acute distress. Head: Normal external exam. Normocephalic. Atraumatic. No Baron signs noted. No raccoon eyes noted Eyes: PERRLA. EOMI. Conjunctiva and sclera normal. Eyelids normal. ENT: TM's Normal. Pharynx normal. Uvula midline. Moist mucous membranes. No trismus noted. No drooling noted. No muffled voice noted. Neck: Normal inspection. Neck supple. FROM. No adenopathy. Thyroid Normal. No meningeal signs. No neck mass noted. CVS: Normal heart rate and rhythm. Heart sound normal. No murmurs noted. Pulses normal throughout. Respiratory: No respiratory distress. Painless inspiration. Breath sounds normal. No wheezes/rales/rhonchi noted. Chest nontender. No accessory muscle usage noted or decreased air movement noted. Abdomen: Soft and nontender. Bowel sounds normal in all 4 quadrants. No distention noted. No organomegaly noted. No visible injury noted. Back: No CVA tenderness. Full range of motion noted. Skin: Skin warm and dry. Normal skin color. Normal skin turgor. No rashes/lesions/lacerations noted. Extremities: No lower extremity edema. Extremities exhibit normal range of motion. Extremities nontender. Neuro: Oriented X 3. Cranial nerve exam: II-XII are grossly intact No motor deficit. No sensory deficit. Reflexes normal. Course Course Course Narrative: 31-year-old male came in for evaluation of acute on chronic abdominal pain, patient has been having chronic abdominal pain for the past few months, patient had several evaluation in the outside institution in the past as patient reported had CT of the abdomen which was unremarkable in the past patient is scheduled to see GI next month at [facility]. Abdominal exam is remarkable for slight left lower quadrant tenderness with no rebound tenderness or guarding slight leukocytosis patient had a history of leukocytosis in the past, patient also is concerned about STDs infection urine was sent for chlamydia and gonorrhea which is pending, since patient has no discharge will not treat until the test result is back.. Medical Decision Making Medical Decision Making Differential Diagnoses: Differential diagnosis Differential Diagnosis: The differential diagnosis associated with the patient?s presentation includes: Chronic abdominal pain Discharge Plan Discharge Clinical Impression: Abdominal pain, Encounter for assessment of STD exposure Patient Disposition: Home, Self-Care Instructions: Abdominal Pain (ED) Additional Instructions: Follow-up with the reconciliation machine operator as scheduled next month. We will call you with the result of STD if positive. Prescriptions: No Action acetaminophen 500 mg tablet 1,000 mg PO QID PRN (Reason: pain) Qty: 30 0RF ibuprofen 600 mg tablet 600 mg PO Q6H PRN (Reason: pain) Qty: 20 0RF ondansetron 4 mg tablet,disintegrating 4 mg PO Q6-8H PRN (Reason: nausea and vomiting) Qty: 14 0RF Referrals: Bharati Buchanan MD [Primary Care Provider] - Interventions: ED Discharge Assessment Last Done: 05/05/22 07:34 Discharge Date/Time: 05/05/22 07:34
[2022-05-05 04:00] VITALS: BP 139/90; PULSE 75; RESP 16; TEMP 36.8; O2SAT 98
[2022-05-05 04:19] LABS: Appearance Urine Clear; Color Urine Yellow; Glucose Urine UA Negative (Negative); Leukocyte Esterase Urine Negative (Negative); Nitrite Urine Negative (Negative); Specific Gravity - Urine 1.025 (1.005-1.025); Urine Blood Negative (Negative); Urine Ketones Negative (Negative); Urine Protein Negative (Neg-Trace)
[2022-05-05 06:00] VITALS: BP 138/93; PULSE 68; RESP 16; TEMP 36.8; O2SAT 97
[2022-05-05 06:52] LABS: CT PCR NOT DETECTED (Not Detect.); NG PCR NOT DETECTED (Not Detect.)
== END 2022-05-05 07:34 | disposition home or self-care (01) ==
PROVIDERS: Emergency Provider Emergency Medicine; PCP Family Medicine
DX: R10.2 Pelvic and perineal pain (principal); Z20.2 Contact with and (suspected) exposure to infections with a predominantly sexual mode of transmission; Z79.899 Other long term (current) drug therapy
CPT/HCPCS: 36415; 80053; 81003; 82248; 83690; 85025; 87491; 87591; 99283; 99284

== ENCOUNTER 2022-06-08 14:24 | Outpatient (REF) | payer MEDICAID, SELFPAY ==
--- NOTE | ~2022-06-08 | XR_ITS ---
EXAMINATION: XR CHEST CLINICAL INFORMATION: Cough, shortness of breath, wheezing COMPARISON: None TECHNIQUE: 2 views of the chest were obtained. FINDINGS: Lungs clear. No airspace consolidation or groundglass opacity. No hyperinflation or pneumothorax or effusion. The heart is normal in size. The hilar and mediastinal contours and bony structures are unremarkable. XR/XR chest 2V IMPRESSION: Unremarkable examination.
== END 2022-06-08 14:25 | disposition home or self-care (01) ==
LOC: HO.XRAY 14:24
PROVIDERS: PCP Family Medicine; Visit Provider Emergency Medicine
DX: R05.9 Cough, unspecified (principal); R06.02 Shortness of breath
CPT/HCPCS: 71046

== ENCOUNTER 2022-12-05 01:59 | Emergency (ER) | payer MEDICAID, SELFPAY ==
[2022-12-05 02:06] VITALS: BP 154/85; PULSE 100; RESP 18; TEMP 36.6; O2SAT 96; BMI 32.3
--- NOTE | 2022-12-05 04:08 | PC.NURSE ---
aox4 no apparent distress at bedside L calf injury while playing basketball; heard pop pain 10/10 bear partial weight
--- NOTE | 2022-12-05 04:56 | ED.LOWEXIN ---
HPI - Extremity Injury (Lower) General Chief Complaint: Extremity Injury, Lower Stated Complaint: Left leg injury Time Seen by Provider: 12/05/22 03:51 Source: patient Mode of arrival: ambulatory History of Present Illness HPI Narrative: 32-year-old male who states that he was playing basketball earlier in the day when he attempted to run for the ball and then developed acute pain at the left calf and has been unable to dorsiflex that foot since then. Related Data Previous Rx's Medication Instructions Recorded acetaminophen 500 mg tablet 1,000 mg PO QID PRN pain #30 tabs 06/30/21 ondansetron 4 mg disintegrating 4 mg PO Q6-8H PRN nausea and 07/12/21 tablet vomiting #14 tabs ketorolac 10 mg tablet 10 mg PO Q6H PRN pain 5 days #20 12/05/22 tabs Allergies Allergy/AdvReac Type Severity Reaction Status Date / Time animal dander [ANIMAL HAIR] Allergy Intermediate HIVES Verified 12/05/22 02:09 bee pollen [BEE STINGS] Allergy Unknown SWELLING Verified 12/05/22 02:09 bees Allergy Unknown Swelling Uncoded 02/25/22 11:43 fur Allergy Unknown Unknown Uncoded 02/25/22 11:43 Review of Systems Review of Systems: Pertinent positives and negatives as stated in HPI PMFSH Past Medical History Source: nursing notes reviewed Medical History Bleeding hemorrhoids No known health problems Surgical History History of mandibular surgery Family History Family History Father Lymphoma Social History Social History Alcohol intake: never Patient Tobacco Use Status: Current everyday Tobacco user Substance Use Type: Marijuana Advance Directives: No Advance Directives Information Provided: Yes Physical Exam Vital Signs: Vital Signs: Last Vital Signs Temp 97.8 F 12/05/22 02:06 Pulse 100 12/05/22 02:06 Resp 18 12/05/22 02:06 BP 154/85 H 12/05/22 02:06 Pulse Ox 96 12/05/22 02:06 O2 Del Method Room Air 12/05/22 02:06 BMI result Body Mass Index 32.3 VITAL SIGNS: Reviewed. GENERAL: Well developed, well nourished, in no acute distress. HEAD: Normocephalic/atraumatic EYES: PERRLA, EOMI EARS: Ext canals without abnormality NOSE: Nares patent bilateral OROPHARYNX: no oral lesions noted, posterior pharynx clear NECK: Supple, no adenopathy LUNGS: Normal breath sounds. No adventitious sounds or accessory muscle use. SpO2<96> CARDIOVASCULAR: Regular rate and rhythm without noted murmurs ABDOMEN: Soft, non-tender, non-distended with bowel sounds. MUSCULOSKELETAL: No tenderness, deformities, or effusions noted on gross inspection. EXTREMITIES: No cyanosis, clubbing or edema; LEFT LOWER EXTREMITY: There is pain on palpation over the left calf, unable to perform Crum's test, otherwise there is no tenderness to palpation along the popliteal fossa there is no erythema or induration SKIN: Inspection of the skin reveals no rashes NEUROLOGIC: Alert and oriented x 4. Strength and sensation to light touch were grossly intact x 4. Medications Administered Discontinued Medications Generic Name Dose Route Start Last Admin Trade Name Freq PRN Reason Stop Dose Admin Acetaminophen 975 mg 12/05/22 04:01 12/05/22 04:10 Acetaminophen 325 Mg Tablet PO 12/05/22 04:02 975 mg ONCE ONE Administration Ketorolac Tromethamine 15 mg 12/05/22 04:01 12/05/22 04:11 Ketorolac Tromethamine 15 Mg/Ml Vial IM 12/05/22 04:02 15 mg ONCE ONE Administration Oxycodone HCl 5 mg 12/05/22 04:01 12/05/22 04:11 Oxycodone Hcl Immed Release 5 Mg Tablet PO 12/05/22 04:02 5 mg ONCE ONE Administration Medical Decision Making Medical Decision Making MDM Narrative: 32-year-old male with history and clinical presentation, DDX: Full/partial Achilles tendon rupture, ruptured Mosqueda cyst, pulled muscle. Patient given combination analgesics. I reviewed all investigations which are negative for evidence to suggest Achilles tendon rupture or cellulitis or ruptured Mosqueda cyst. Compression dressing will be applied for likely muscle strain. Patient informed of all findings at bedside. Differential Diagnosis Please see the discussion above Radiology Impression Radiologist Impression: No tendon rupture, otherwise my interpretation is in agreement with radiology's impression. Discharge Plan Discharge Clinical Impression: Muscle strain Patient Disposition: Home, Self-Care Instructions: Muscle Strain (ED) Additional Instructions: 1. Tylenol 1000 mg, orally, every 6 hours as needed for pain control. Do not exceed 4000 mg within 24 hours. 2. Keep the Navneet wrap in place and follow-up with your primary care provider in the next 24-48 hours. Return to the ER for any worsening symptoms. Prescriptions: New ketorolac 10 mg tablet 10 mg PO Q6H PRN (Reason: pain) 5 Days Qty: 20 0RF Rx Instructions: Patient received Toradol in the emergency room. Discontinued ibuprofen 600 mg tablet 600 mg PO Q6H PRN (Reason: pain) Qty: 20 0RF No Action acetaminophen 500 mg tablet 1,000 mg PO QID PRN (Reason: pain) Qty: 30 0RF ondansetron 4 mg tablet,disintegrating 4 mg PO Q6-8H PRN (Reason: nausea and vomiting) Qty: 14 0RF
[2022-12-05 05:51] VITALS: BP 150/89; PULSE 100; RESP 18; TEMP 36.9; O2SAT 98
--- NOTE | 2022-12-05 06:05 | PC.NURSE ---
Discharge instructions given and explained to pt No apparent distress aox4 all of pt's questions answered Ambulates safely/independently
--- NOTE | 2022-12-05 06:10 | PC.NURSE ---
ariadne bandage applied by Dr Patterson
== END 2022-12-05 06:11 | disposition home or self-care (01) ==
PROVIDERS: Emergency Provider Student in an Organized Health Care Education/Training Program
DX: S86.912A Strain of unspecified muscle(s) and tendon(s) at lower leg level, left leg, initial encounter (principal); M79.605 Pain in left leg; X58.XXXA Exposure to other specified factors, initial encounter; Y93.9 Activity, unspecified; Y92.9 Unspecified place or not applicable; Y99.9 Unspecified external cause status; Z79.899 Other long term (current) drug therapy; F17.200 Nicotine dependence, unspecified, uncomplicated; Z71.6 Tobacco abuse counseling
CPT/HCPCS: 76882; 96372; 99284; J1885

== ENCOUNTER 2022-12-13 15:53 | Outpatient (REF) | payer MEDICAID, SELFPAY ==
[2022-12-13 18:55] LABS: Syphilis Screen Nonreactive (Nonreactive)
[2022-12-14 05:30] LABS: HBS Num1 99.94 mIU/mL (0-7.99); HBc Num1 0.22 S/CO (0.00-0.79); HBsAGNum1 0.42 S/CO (0.00-0.99); HIV AB/AG Nonreactive (Nonreactive); HIV Num 1 0.39 S/CO (0.00-0.99); Hepatitis B Core Antibody Nonreactive (Nonreactive); Hepatitis B Surface Antigen Negative (Negative); ~Hepatitis B Surface Antibody REACTIVE (Nonreactive)
[2022-12-14 05:31] LABS: ~Hepatitis C Antibody Nonreactive (Nonreactive)
[2022-12-14 12:35] LABS: CT PCR NOT DETECTED (Not Detect.); NG PCR NOT DETECTED (Not Detect.)
== END 2022-12-13 15:54 | disposition home or self-care (01) ==
LOC: HO.CHCLDS 15:53
PROVIDERS: Visit Provider Family Medicine
DX: Z11.4 Encounter for screening for human immunodeficiency virus [HIV] (principal); Z20.2 Contact with and (suspected) exposure to infections with a predominantly sexual mode of transmission
CPT/HCPCS: 0353U; 86704; 86706; 86780; 86803; 87340; 87389

== ENCOUNTER 2023-10-21 13:01 | Outpatient (REF) | payer MEDICAID, SELFPAY ==
[2023-10-21 14:11] LABS: MANUAL DIFF FLAG NO
[2023-10-21 14:29] LABS: Basophils Absolute Auto 0.1 X10*3/uL (0.0-0.2); Basophils Percent Auto 0.7 % (0-2); Eosinophils Absolute Auto 0.4 X10*3/uL (0.0-0.4); Eosinophils Percent Auto 4.9 % (0-4); Hematocrit 42.8 % (42.0-52.0); Hemoglobin 14.7 g/dl (14.0-18.0); Imm Gran Abs Auto 0.03 X10*3/uL (0.00-0.03); Imm Gran Pct Auto 0.4 % (0.0-0.4); Lymphocytes Absolute Auto 3.6 X10*3/uL (1.2-4.9); Mean Corpuscular HGB Conc 34.3 g/dl (31.0-36.0); Mean Corpuscular Hemoglobin 30.1 pg (27.0-33.0); Mean Corpuscular Volume 87.7 fL (80.0-98.0); Mean Platelet Volume 10.1 fL (9.4-12.4); Monocytes Absolute Auto 0.8 X10*3/uL (0.1-1.2); Monocytes Percent Auto 9.6 % (2-11); Neutrophils Absolute Auto 3.3 x10*3/uL (2.0-8.3); Neutrophils Percent Auto 40.4 % (45-73); Platelet Count 293 X10*3/uL (160-400); Red Blood Count 4.88 X10*6/uL (4.60-5.80); Red Cell Distribution Width 12.3 % (11.0-16.0); White Blood Count 8.1 X10*3/uL (4.8-10.8)
[2023-10-21 14:48] LABS: Creatinine Urine 210.83 mg/dL; Microalbum/Creatinine Ratio Ur 6.1 ug/mg cr (<30)
[2023-10-21 15:03] LABS: Alanine Aminotransferase 53 U/L (0-40); Albumin Level 4.3 g/dL (3.5-5.0); Alkaline Phosphatase 73 U/L (39-117); Anion Gap 12 (12-20); Aspartate Amino Transferase 31 U/L (5-37); Bilirubin Total 0.5 mg/dL (0.0-1.0); Blood Urea Nitrogen 10 mg/dL (9-16); Calcium 9.5 mg/dL (8.4-10.2); Carbon Dioxide 23 mmol/L (22-29); Chloride 110 mmol/L (96-108); Cholesterol 143 mg/dL (<200); Estimated Glomerular Filt Rate > 60; Glucose Random 96 mg/dL (60-115); HDL Cholesterol 29 mg/dL (>40); LDL Cholesterol Calculated 64 mg/dL (<100); Potassium 3.9 mmol/L (3.3-5.1); Sodium 141 mmol/L (135-145); Total Protein 7.5 g/dL (6.5-8.0); Triglycerides 253 mg/dL (<150)
[2023-10-21 15:06] LABS: TSH reflex Free T4 2.14 uIU/mL (0.32-4.0)
== END 2023-10-21 13:02 | disposition home or self-care (01) ==
LOC: HO.CHCLDS 13:01
PROVIDERS: Visit Provider Family Medicine
DX: M79.89 Other specified soft tissue disorders (principal)
CPT/HCPCS: 36415; 80053; 80061; 82043; 82570; 84443; 85025

== ENCOUNTER 2023-11-08 00:25 | Emergency (ER) | payer MEDICAID, SELFPAY ==
--- NOTE | ~2023-11-08 | CT_ITS ---
EXAMINATION: CT ABDOMEN AND PELVIS WITH CONTRAST CLINICAL INFORMATION: Abdominal pain. COMPARISON: None available. TECHNIQUE: Multidetector volumetric images were obtained from the superior aspect of the liver through the pubic symphysis following administration 85 mL of Omnipaque 350 intravenous contrast. Sagittal and coronal reformatted images were obtained on the technologist's workstation. Oral contrast: No This CT examination was performed using dose optimization techniques as appropriate, variously including the following: *Automated exposure control *Adjustment of mA and/or kV according to patient size (this includes techniques or standardized protocols for targeted exams where dose is matched to indication/reason for exam; i.e. extremities or head) *Use of iterative reconstruction technique DLP: 821 mGy-cm FINDINGS: LUNG BASES: The visualized lung bases are unremarkable. LIVER, GALLBLADDER, AND BILIARY TREE: The liver is of mild diffuse diminished attenuation. No focal liver lesions are seen. There is no intrahepatic biliary duct dilatation The gallbladder is unremarkable with no evidence of radiopaque gallstones, gallbladder wall thickening, or obvious pericholecystic inflammatory changes. PANCREAS: Unremarkable. SPLEEN: Unremarkable. ADRENAL GLANDS: Unremarkable. KIDNEYS AND URETERS: The kidneys are normal in size, shape, and attenuation. No hydronephrosis, hydroureter, or calculi seen. No perinephric stranding. BLADDER: Unremarkable. GASTROINTESTINAL TRACT: There are prominent fluid-filled an apparently mildly thickened small bowel loops throughout with fluid within the right colon. The appendix is visualized and is within normal limits. ABDOMINAL WALL: There is a small umbilical hernia containing fat. LYMPH NODES: Normal. VASCULAR: Unremarkable. PELVIC VISCERA: Unremarkable. OSSEOUS STRUCTURES: Unremarkable. CT/CT abdomen pelvis w IV con IMPRESSION: 1. There are prominent fluid-filled and apparently mildly thickened small bowel loops throughout with fluid in the right colon. Findings are suggestive of enteritis. 2. Mild hepatic steatosis. 3. Small umbilical hernia containing fat. Fleischner guidelines were followed.
[2023-11-08 00:48] VITALS: BP 135/89; PULSE 119; RESP 20; TEMP 37.4; O2SAT 95; BMI 35.6
[2023-11-08 01:25] LABS: Hematocrit 45.3 % (42.0-52.0); Hemoglobin 15.9 g/dl (14.0-18.0); Mean Corpuscular HGB Conc 35.1 g/dl (31.0-36.0); Mean Corpuscular Hemoglobin 30.5 pg (27.0-33.0); Mean Corpuscular Volume 86.9 fL (80.0-98.0); Mean Platelet Volume 9.5 fL (9.4-12.4); Platelet Count 282 X10*3/uL (160-400); Red Blood Count 5.21 X10*6/uL (4.60-5.80); White Blood Count 14.3 X10*3/uL (4.8-10.8)
[2023-11-08 01:33] LABS: Alanine Aminotransferase 58 U/L (0-40); Albumin Level 4.6 g/dL (3.5-5.0); Alkaline Phosphatase 72 U/L (39-117); Anion Gap 14 (12-20); Aspartate Amino Transferase 29 U/L (5-37); Bilirubin Total 0.6 mg/dL (0.0-1.0); Blood Urea Nitrogen 15 mg/dL (9-16); Calcium 9.9 mg/dL (8.4-10.2); Carbon Dioxide 25 mmol/L (22-29); Chloride 105 mmol/L (96-108); Estimated Glomerular Filt Rate > 60; Glucose Random 178 mg/dL (60-115); Lipase 18 U/L (8-78); Potassium 4.5 mmol/L (3.3-5.1); Sodium 139 mmol/L (135-145)
[2023-11-08 02:12] VITALS: BP 140/91; PULSE 108; RESP 16; O2SAT 94
[2023-11-08 02:24] LABS: Appearance Urine Clear; Color Urine Yellow; Glucose Urine UA Negative (Negative); Leukocyte Esterase Urine Negative (Negative); Nitrite Urine Negative (Negative); PH 5.5 (5.0-9.0); Specific Gravity - Urine >= 1.030 (1.005-1.025); Urine Blood Negative (Negative); Urine Ketones Trace mg/dL (Negative); Urine Protein Trace mg/dL (Neg-Trace)
[2023-11-08 02:56] VITALS: TEMP 36.8
--- NOTE | 2023-11-08 03:00 | ED_ITS ---
HPI - Abdominal Pain General Chief Complaint: Abdominal Pain Stated Complaint: LLQ abd pain, nausea, vomiting Time Seen by Provider: 11/08/23 02:37 Source: patient Mode of arrival: ambulatory History of Present Illness ED Provider: Dr Patterson HPI narrative: 33-year-old male who reports right lower quadrant pain that became more intense this evening with associated nausea and vomiting and an episode of diarrhea, he also reports some dysuria but denies any history of kidney stones. Related Data Previous Rx's ?Medication ?Instructions ?Recorded acetaminophen 500 mg tablet 1,000 mg (2 x 500 mg) PO QID PRN 06/30/21 pain #30 tabs ondansetron 4 mg disintegrating 4 mg PO Q6-8H PRN nausea and 07/12/21 tablet vomiting #14 tabs ketorolac 10 mg tablet 10 mg PO Q6H PRN pain 5 days #20 12/05/22 tabs Allergies Allergy/AdvReac Type Severity Reaction Status Date / Time animal dander [ANIMAL HAIR] Allergy Intermediate HIVES Verified 11/08/23 00:52 bee pollen [BEE STINGS] Allergy Unknown SWELLING Verified 11/08/23 00:52 bees Allergy Unknown Swelling Uncoded 11/08/23 00:52 fur Allergy Unknown Unknown Uncoded 11/08/23 00:52 Review of Systems Review of Systems Pertinent positives and negatives as stated in HPI PMFSH Past Medical History Source: nursing notes reviewed Medical History Bleeding hemorrhoids No known health problems Surgical History History of mandibular surgery Family History Family History Father Lymphoma Social History Social History Alcohol intake: unknown Patient Tobacco Use Status: Current everyday Tobacco user Substance Use Type: Marijuana Advance Directives: No Advance Directives Information Provided: Yes Do you have a plan to hurt others: No Plan Physical Exam ED Vital Signs: Vital Signs - 24 hr 11/08/23 00:48 11/08/23 02:12 11/08/23 02:56 Temperature 99.3 F 98.2 F Pulse Rate 119 H 108 H Respiratory Rate 20 16 Blood Pressure 135/89 140/91 H Pulse Oximetry 95 94 Oxygen Delivery Method Room Air Room Air 11/08/23 06:01 Temperature 98.6 F Pulse Rate 88 Respiratory Rate 16 Blood Pressure 101/53 L Pulse Oximetry 94 Oxygen Delivery Method Room Air BMI result Body Mass Index 35.6 VITAL SIGNS: Reviewed. GENERAL: Well developed, well nourished, in no acute distress. HEAD: Normocephalic/atraumatic EYES: PERRLA, EOMI LUNGS: Normal breath sounds. No adventitious sounds or accessory muscle use. SpO2<94> CARDIOVASCULAR: Regular rate and rhythm without noted murmurs ABDOMEN: Soft, they lower quadrant pain/suprapubic, non-distended with bowel sounds. MUSCULOSKELETAL: No tenderness, deformities, or effusions noted on gross inspection. EXTREMITIES: No cyanosis, clubbing or edema. SKIN: Inspection of the skin reveals no rashes NEUROLOGIC: Alert and oriented x 4. Strength and sensation to light touch were grossly intact x 4. Medical Decision Making Medical Decision Making [facility] Narrative: 0300: 33-year-old male with history and clinical presentation, DDX: Appendicitis, renal colic, UTI I reviewed all investigations and hematologic indices are significant for leukocytosis but no anemia or thrombocytopenia. Chemistry indices are negative for DENY/electrolyte or liver enzyme derangements. Urinalysis is negative for hematuria or infection. Patient received antibiotics and IV fluids and CT scan is pending. Signed out to Dr Wyatt - f/u CT scan for r/o appy Differential Diagnosis Differential Diagnoses: The differential diagnosis associated with the presentation includes Please see the discussion above Admission/Observation Consideration of admission/observation: Escalation of care including admission/observation considered Please see the discussion above Lab Data [facility] Lab Attestation statement: I reviewed the patient's lab results. Please see the discussion above 11/08/23 01:15 11/08/23 01:15 Labs: Lab Results 11/08/23 11/08/23 11/08/23 Range/Units 01:15 02:15 03:57 WBC 14.3 H (4.8-10.8) X10*3/uL RBC 5.21 (4.60-5.80) X10*6/uL Hgb 15.9 (14.0-18.0) g/dl Hct 45.3 (42.0-52.0) % MCV 86.9 (80.0-98.0) fL MCH 30.5 (27.0-33.0) pg MCHC 35.1 (31.0-36.0) g/dl RDW 13.0 (11.0-16.0) % Plt Count 282 (160-400) X10*3/uL MPV 9.5 (9.4-12.4) fL Absolute Nucleated RBC 0.000 (0.0-0.012) X10*3/uL Nucleated RBC % (auto) 0.0 (0.0-0.2) /100WBC Sodium 139 (135-145) mmol/L Potassium 4.5 (3.3-5.1) mmol/L Chloride 105 (96-108) mmol/L Carbon Dioxide 25 (22-29) mmol/L Anion Gap 14 (12-20) BUN 15 (9-16) mg/dL Creatinine 1.03 (0.5-1.4) mg/dL Estim Creat Clear Calc 128.0 Estimated GFR > 60 Random Glucose 178 H (60-115) mg/dL Lactic Acid 1.8 (0.5-2.0) mmol/L Calcium 9.9 (8.4-10.2) mg/dL Total Bilirubin 0.6 (0.0-1.0) mg/dL AST 29 (5-37) U/L ALT 58 H (0-40) U/L Alkaline Phosphatase 72 (39-117) U/L Total Protein 8.0 (6.5-8.0) g/dL Albumin 4.6 (3.5-5.0) g/dL Lipase 18 (8-78) U/L Urine Color Yellow Urine Appearance Clear Urine pH 5.5 (5.0-9.0) Ur Specific [place] >= 1.030 H (1.005-1.025) Urine Protein Trace (Neg-Trace) mg/dL Urine Glucose (UA) Negative (Negative) mg/dL Urine Ketones Trace (Negative) mg/dL Urine Blood Negative (Negative) Urine Nitrite Negative (Negative) Ur Leukocyte Esterase Negative (Negative) Radiology Impression Discussion of test interpretation with radiology: I have reviewed the radiologist's reading. Radiologist Impression: Please see the discussion above External Record Review External record reviewed: Outpatient record, Prior outpatient labs and Prior outpatient radiology Medications Administered Discontinued Medications Generic Name Dose Route Start Last Admin Trade Name Freq PRN Reason Stop Dose Admin Piperacillin Sod/Tazobactam 50 mls @ 100 mls/hr 11/08/23 03:42 11/08/23 04:40 Sod 3.375 gm/ Sodium Chloride IV 11/08/23 04:11 Infused ONCE ONE Infusion Iohexol 85 ml 11/08/23 03:26 11/08/23 03:26 Iohexol 350 Mg/Ml 100 Ml Infus..Btl IV 11/08/23 03:27 85 ml ONCE ONE Administration Critical Care Time Critical Care Time Critical Care Time: Yes Total Critical Care Time: 45 Attestation: I personally attest to this time spent taking care of the patient. Discharge Plan Discharge Clinical Impression: Abdominal pain Patient Disposition: Still a Patient Prescriptions: No Action acetaminophen 500 mg tablet 1,000 mg PO QID PRN (Reason: pain) Qty: 30 0RF ondansetron 4 mg tablet,disintegrating 4 mg PO Q6-8H PRN (Reason: nausea and vomiting) Qty: 14 0RF ketorolac 10 mg tablet 10 mg PO Q6H PRN (Reason: pain) 5 Days Qty: 20 0RF Rx Instructions: Patient received Toradol in the emergency room. Print Language: Argentine
[2023-11-08] MEDS: iohexoL 350 MG/ML 100 ML INFUS..BTL 85 ML IV (03:26)
[2023-11-08] MEDS: Piperacillin Sodium/Tazobactam 3.375 GM in 0.9 % Sodium Chloride 50 ML IV (04:06)
[2023-11-08 04:16] LABS: Lactic Acid 1.8 mmol/L (0.5-2.0)
[2023-11-08 06:01] VITALS: BP 101/53; PULSE 88; RESP 16; TEMP 37; O2SAT 94
[2023-11-08 09:51] VITALS: BP 131/70; PULSE 98; RESP 16; O2SAT 98
[2023-11-08] MEDS: Ketorolac Tromethamine 15 MG/ML VIAL IVPUSH (12:28)
[2023-11-08 12:40] VITALS: BP 132/95; PULSE 94; RESP 18; TEMP 36.9; O2SAT 95
== END 2023-11-08 12:41 | disposition home or self-care (01) ==
PROVIDERS: Student in an Organized Health Care Education/Training Program; Emergency Provider Emergency Medicine
DX: R10.32 Left lower quadrant pain (principal); R11.2 Nausea with vomiting, unspecified; R30.0 Dysuria; Z79.899 Other long term (current) drug therapy
CPT/HCPCS: 36415; 74177; 80053; 81003; 83605; 83690; 85027; 87040; 96365; 96375; 99285; J1885; J2543; Q9967

== ENCOUNTER 2023-12-05 22:25 | Emergency (ER) | payer SELFPAY ==
[2023-12-05 22:28] VITALS: BP 171/110; PULSE 99; RESP 20; TEMP 37.2; O2SAT 96; BMI 34.2
[2023-12-06 01:44] LABS: CT PCR NOT DETECTED (Not Detect.); NG PCR NOT DETECTED (Not Detect.)
[2023-12-06 02:33] VITALS: BP 162/102; PULSE 89; RESP 16; TEMP 37.3; O2SAT 97
[2023-12-06 02:53] LABS: Appearance Urine Clear; Color Urine Yellow; Glucose Urine UA Negative (Negative); Leukocyte Esterase Urine Negative (Negative); Nitrite Urine Negative (Negative); PH 5.5 (5.0-9.0); Specific Gravity - Urine 1.025 (1.005-1.025); Urine Blood Negative (Negative); Urine Ketones Negative (Negative); Urine Protein Negative (Neg-Trace)
[2023-12-06 03:57] VITALS: BP 152/105; PULSE 74; RESP 18; TEMP 37.1; O2SAT 95
[2023-12-06 05:21] VITALS: BP 160/103; PULSE 76; RESP 16; O2SAT 97
--- NOTE | 2023-12-06 05:33 | ED_ITS ---
HPI - Male Genitourinary General Chief complaint: Urogenital-Male Stated complaint: personal Time Seen by Provider: 12/06/23 05:33 Source: patient Mode of arrival: ambulatory Limitations: no limitations History of Present Illness ED Provider: nesha ROJAS Narrative: ?std exposure several weeks ago after been intoxicated comes here just to be showed no STI denies any penile discharge Related Data Previous Rx's ?Medication ?Instructions ?Recorded acetaminophen 500 mg tablet 1,000 mg (2 x 500 mg) PO QID PRN 06/30/21 pain #30 tabs ondansetron 4 mg disintegrating 4 mg PO Q6-8H PRN nausea and 07/12/21 tablet vomiting #14 tabs ketorolac 10 mg tablet 10 mg PO Q6H PRN pain 5 days #20 12/05/22 tabs ondansetron 4 mg disintegrating 4 mg PO Q6H PRN nausea and 11/08/23 tablet vomiting #10 tabs metronidazole 500 mg tablet 500 mg PO BID 7 days #14 tabs 12/06/23 Allergies Allergy/AdvReac Type Severity Reaction Status Date / Time animal dander [ANIMAL HAIR] Allergy Intermediate HIVES Verified 12/05/23 22:34 bee pollen [BEE STINGS] Allergy Unknown SWELLING Verified 12/05/23 22:34 bees Allergy Unknown Swelling Uncoded 11/08/23 00:52 fur Allergy Unknown Unknown Uncoded 11/08/23 00:52 Review of Systems Review of Systems: Yes all other systems are reviewed and are negative PMFSH Past Medical History Medical History Bleeding hemorrhoids No known health problems Surgical History History of mandibular surgery Family History Family History Father Lymphoma Social History Social History Alcohol intake: current Alcohol intake frequency: holidays/special occasions only Alcohol type: beer Patient Tobacco Use Status: Current everyday Tobacco user Smoked in Last 30 Days: Yes Use of substances other than those prescribed or required for medical reasons: No Substance Use Type: Marijuana Any prior treatment program specific to substance use: No Advance Directives: No Advance Directives Information Provided: Yes Do you have a plan to hurt others: No Plan Physical Exam Vital Signs: Vital Signs: Last Vital Signs Temp 98.1 F 12/06/23 06:09 Pulse 73 12/06/23 06:09 Resp 16 12/06/23 06:09 BP 161/89 H 12/06/23 06:09 Pulse Ox 98 12/06/23 06:09 O2 Del Method Room Air 12/06/23 06:09 BMI result Body Mass Index 34.2 Appearance: Alert. Oriented X3. No acute distress. ENT: Pharynx normal. Oral Mucosa moist Neck: Normal inspection. Neck supple. CVS: Normal heart rate and rhythm. Pulses normal. Respiratory: No respiratory distress. Equal air entry bilateral, no wheezing/rales/rhonchi : No penile discharge Skin: Skin warm and dry. Normal skin color. Normal skin turgor. Extremities: No lower extremity edema. Neuro: Oriented X 3. Medications Administered Discontinued Medications Generic Name Dose Route Start Last Admin Trade Name Freq PRN Reason Stop Dose Admin Metronidazole 500 mg 12/06/23 05:48 12/06/23 05:57 Metronidazole 500 Mg Tablet PO 12/06/23 05:49 Not Given ONCE ONE Medical Decision Making Medical Decision Making [facility] Narrative: Patient's STI testing negative for gonorrhea and chlamydia UA negative will prescribe Flagyl for possible trichomoniasis . Patient advised safe sex practices Lab Data [facility] Lab Attestation statement: I reviewed the patient's lab results. Labs: Lab Results 12/05/23 12/06/23 Range/Units 22:46 02:30 Urine Color Yellow Urine Appearance Clear Urine pH 5.5 (5.0-9.0) Ur Specific [place] 1.025 (1.005-1.025) Urine Protein Negative (Neg-Trace) mg/dL Urine Glucose (UA) Negative (Negative) mg/dL Urine Ketones Negative (Negative) mg/dL Urine Blood Negative (Negative) Urine Nitrite Negative (Negative) Ur Leukocyte Esterase Negative (Negative) Chlam trachomat DNA PCR NOT DETECTED (Not Detect.) N.gonorrhoeae DNA (PCR) NOT DETECTED (Not Detect.) Discharge Plan Discharge Clinical Impression: Possible exposure to STI Patient Disposition: Home, Self-Care Instructions: Postexposure Prophylaxis (ED) Additional Instructions: Care and cautions as advised Safe sex practice Take Flagyl for 7 days for possible trichomoniasis exposure Prescriptions: New metronidazole 500 mg tablet 500 mg PO BID 7 Days Qty: 14 0RF No Action acetaminophen 500 mg tablet 1,000 mg PO QID PRN (Reason: pain) Qty: 30 0RF ondansetron 4 mg tablet,disintegrating 4 mg PO Q6-8H PRN (Reason: nausea and vomiting) Qty: 14 0RF ketorolac 10 mg tablet 10 mg PO Q6H PRN (Reason: pain) 5 Days Qty: 20 0RF Rx Instructions: Patient received Toradol in the emergency room. ondansetron 4 mg tablet,disintegrating 4 mg PO Q6H PRN (Reason: nausea and vomiting) Qty: 10 0RF Interventions: ED Discharge Assessment Last Done: 12/06/23 06:09 Discharge Date/Time: 12/06/23 06:10 Print Language: Frisian
[2023-12-06 06:05] VITALS: BP 161/89; PULSE 73; RESP 16; TEMP 36.7; O2SAT 98
[2023-12-06 06:09] VITALS: BP 161/89; PULSE 73; RESP 16; TEMP 36.7; O2SAT 98
== END 2023-12-06 06:10 | disposition home or self-care (01) ==
PROVIDERS: Emergency Medicine; Emergency Provider Internal Medicine; PCP Family Medicine
DX: Z20.2 Contact with and (suspected) exposure to infections with a predominantly sexual mode of transmission (principal)
CPT/HCPCS: 81003; 87491; 87591; 99283; 99284

== ENCOUNTER 2024-01-04 12:24 | Outpatient (AMB) | payer MEDICAID, SELFPAY ==
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
[2024-01-04 12:35] VITALS: BP 141/97; PULSE 88; BMI 36.7
== END 2024-01-04 13:20 | disposition home or self-care (01) ==
PROVIDERS: PCP Family Medicine; Visit Provider Nurse Practitioner
DX: K52.9 Noninfective gastroenteritis and colitis, unspecified (principal); R19.5 Other fecal abnormalities; R10.9 Unspecified abdominal pain; K62.5 Hemorrhage of anus and rectum; D72.829 Elevated white blood cell count, unspecified
CPT/HCPCS: 99203

== ENCOUNTER 2024-01-04 12:24 | Outpatient (REF) | payer MEDICAID, SELFPAY ==
[2024-01-04 14:10] LABS: MANUAL DIFF FLAG NO
[2024-01-04 14:43] LABS: Basophils Absolute Auto 0.1 X10*3/uL (0.0-0.2); Basophils Percent Auto 0.4 % (0-2); Eosinophils Absolute Auto 0.6 X10*3/uL (0.0-0.4); Eosinophils Percent Auto 4.1 % (0-4); Hematocrit 43.1 % (42.0-52.0); Hemoglobin 15.1 g/dl (14.0-18.0); Imm Gran Abs Auto 0.05 X10*3/uL (0.00-0.03); Imm Gran Pct Auto 0.4 % (0.0-0.4); Lymphocytes Absolute Auto 3.1 X10*3/uL (1.2-4.9); Lymphocytes Percent Auto 22.7 % (20-40); Mean Corpuscular Hemoglobin 30.5 pg (27.0-33.0); Mean Corpuscular Volume 87.1 fL (80.0-98.0); Mean Platelet Volume 9.6 fL (9.4-12.4); Monocytes Absolute Auto 1.1 X10*3/uL (0.1-1.2); Monocytes Percent Auto 7.8 % (2-11); Neutrophils Absolute Auto 8.9 x10*3/uL (2.0-8.3); Neutrophils Percent Auto 64.6 % (45-73); Platelet Count 264 X10*3/uL (160-400); Red Blood Count 4.95 X10*6/uL (4.60-5.80); White Blood Count 13.8 X10*3/uL (4.8-10.8)
[2024-01-04 15:00] LABS: C Reactive Protein 2.04 mg/dL (< or = 0.50)
[2024-01-04 15:24] LABS: H Pylori Breath Test Positive (Negative)
[2024-01-05 20:52] LABS: Transglutaminase Ab IgG <1.0 U/mL; Transglutaminase IgA <1.0 U/mL
== END 2024-01-04 12:25 | disposition home or self-care (01) ==
LOC: HO.LAB 12:24
PROVIDERS: PCP Family Medicine; Visit Provider Nurse Practitioner
DX: R10.9 Unspecified abdominal pain (principal); K52.9 Noninfective gastroenteritis and colitis, unspecified; R19.5 Other fecal abnormalities; K62.5 Hemorrhage of anus and rectum; D72.829 Elevated white blood cell count, unspecified
CPT/HCPCS: 36415; 83013; 85025; 86003; 86140; 86364; 99212

== ENCOUNTER 2025-01-12 21:57 | Emergency (ER) | payer MEDICAID, SELFPAY ==
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
[2025-01-12 22:07] VITALS: BP 163/90; PULSE 95; RESP 14; O2SAT 100
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
[2025-01-12] MEDS: Lactated Ringers 1,000 ML 999 ML IV (22:16)
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
[2025-01-12 22:18] VITALS: BP 144/96; PULSE 85; RESP 18; O2SAT 96
--- OUTSIDE RECORDS SUMMARY | 2025-01-12 22:27 | XMS_ITS | Encounter Summary ---
Author Organization [employer] Address [address] [facility] [address] [place] [address] Care Team Providers Care Photographic Equipment Assembler Name Role Phone Bharati Buchanan MD Primary Care Provider [phone] Encounter Details Date Type Department Care Team ([facility] st Contact Info) Description 05/10/2022 Orders Only [facility] MED & PEDS [address] [place], [place] [phone] Bharati Buchanan MD [address] [place], [place] [phone] Leukocytosis, unspecified type (Primary Dx) Social History Tobacco Use Types Packs/Day Years Used Date Smoking Tobacco: Every Day Cigarettes Smokeless Tobacco: Never Alcohol Use Standard Drinks/Week Comments Never 0 (1 standard drink = 0.6 oz pur e alcohol) Depression Answer Date Recorded Patient Health Questionnaire-2 Score 3 05/06/2022 Sex and Gender Information Value Date Recorded Sex Assigned at Male 03/29/2022 10:26 AM EDT Legal Sex Male 10:26 AM EDT Gender Identity Male 03/29/2022 10:26 AM EDT Sexual Orientation Straight 03/29/2022 10 :26 AM EDT COVID-19 Exposure Response Date Recorded In the last 10 days, have yo u been in contact with someone who was confirmed or suspected to have Coronavirus/COVID-19? No / Unsure 05/06/2022 9:13 AM EST documented as of this encounter Plan of Treatment Scheduled Orders Name Type Priority Associated Diagnoses Orde r Schedule CBC (includes Differential and Platelets) with Smear Review Lab Routine Leukocytosis, unspecified type Expected: 05/10/2022 (Approximate), Expires: 05/10/2023 documented as of this encounter Visit Diagnoses Diagnosis Leukocytosis, unspecified type- Primary documented in this encounter Care Teams Photographic Equipment Assembler Relationship Specialty Start Date End Date Bharati Buchanan MD [address] [place] [address] PCP - General Family Medicine 04/06/21 documented as of this encounter
--- OUTSIDE RECORDS SUMMARY | 2025-01-12 22:27 | XMS_ITS | Clinical Summary ---
Author Organization [facility] ity Address [address] [place] [address] Care Team Providers Care Zoo Veterinarian Name Role Phone Bharati Buchanan MD Primary Care Provider [phone] Social History Tobacco Use Types Packs/Day Years Used Date Smoking Tobacco: Every Day Alcohol Use Standard Drinks/Week Comments Yes 0 (1 standard drink = 0.6 oz pur e alcohol) Sex and Gender Information Value Date Recorded Sex Assigned at Not on file Legal Sex Male 5:36 AM EST Gender Identity Not on file Sexual Orientation Not on file Obstetrics History Last Filed Vital Signs Vital Sign Reading Time Taken Comments Blood Pressure 126/86 03/15/2022 3:17 PM EDT Pulse 82 03/15/2022 3:17 PM EDT Temperature - - Respiratory Rate - - Oxygen Saturation - - Inhaled Oxygen Concentration - - Weight 101 kg (223 lb) 03/15/2022 3:17 PM EDT Height 177.8 cm (5' 10 ) 03/15/2022 3:17 PM EDT Body Mass Index 32 03/15/2022 3:17 PM EDT Plan of Treatment Health Maintenance Due Date Last Done Comments DTaP,Tdap,and Td Vaccines (1 - Tdap) 2009 Hepatitis B Vaccines (1 of 3 - 19+ 3-dose series) 2009 Pneumococcal Vaccine: Pediat rics (0 to 5 Years) and At-Risk Patients (6 to 49 Years) (1 of 2 - PCV) 2009 HIV Screening 05/09/2022 Hepatitis C Screening 05/09/2022 Social Influencers of Health Screening 05/09/2022 COVID-19 Vaccine (1 - 2023-2 5 season) 2024 Depression Screening 05/30/2024 Influenza Vaccine (#1) 2025 HIB Vaccines Aged Out No longer eligi ble based on patient's age to complete this topic HPV Vaccines Aged Out No longer eligi ble based on patient's age to complete this topic Hepatitis A Vaccines Aged Out No long er eligible based on patient's age to complete this topic IPV Vaccines Aged Out No longer eligi ble based on patient's age to complete this topic MMR Vaccines Aged Out No longer eligi ble based on patient's age to complete this topic Meningococcal ACWY Vaccine Aged Out N o longer eligible based on patient's age to complete this topic Meningococcal B Vaccine Aged Out No l onger eligible based on patient's age to complete this topic RSV Immunization Patients Un farhan 20 months Aged Out No longer eligible b ased on patient's age to complete this topic Varicella Vaccines Aged Out No longer eligible based on patient's age to complete this topic Care Teams Zoo Veterinarian Relationship Specialty Start Date End Date Bharati Buchanan MD [address] [place] [address] PCP - General 03/02/22
[2025-01-12] MEDS: Tranexamic Acid 1,000 MG in 0.9 % Sodium Chloride 50 ML 360 MG IV (22:32)
--- NOTE | 2025-01-12 22:38 | PC.NURSE ---
verbal orders from MD Serrato: 2210 50mcg fentanyl, 2227 50mcg fentanyl IV, tranexamic acid IV
[2025-01-12 22:40] VITALS: BP 168/103; PULSE 85; RESP 12; O2SAT 100
[2025-01-12 22:46] LABS: MANUAL DIFF FLAG NO
[2025-01-12 22:48] LABS: Hematocrit 39.1 % (42.0-52.0); Hemoglobin 13.3 g/dl (14.0-18.0); Imm Gran Abs Auto 0.03 X10*3/uL (0.00-0.03); Imm Gran Pct Auto 0.2 % (0.0-0.4); Lymphocytes Absolute Auto 3.2 X10*3/uL (1.2-4.9); Mean Corpuscular HGB Conc 34.0 g/dl (31.0-36.0); Mean Corpuscular Hemoglobin 31.4 pg (27.0-33.0); Mean Corpuscular Volume 92.4 fL (80.0-98.0); NRBC Abs Auto 0.000 X10*3/uL (0.0-0.012); NRBC Pct Auto 0.0 /100WBC (0.0-0.2); Platelet Count 256 X10*3/uL (160-400); Red Blood Count 4.23 X10*6/uL (4.60-5.80); White Blood Count 12.3 X10*3/uL (4.8-10.8)
--- NOTE | 2025-01-12 22:48 | PC.NURSE ---
narcotics detective at bedside
[2025-01-12 22:50] VITALS: BP 161/99; PULSE 76; RESP 18; O2SAT 98
[2025-01-12 22:59] LABS: Alanine Aminotransferase 21 U/L (0-40); Albumin Level 4.0 g/dL (3.5-5.0); Alkaline Phosphatase 56 U/L (39-117); Anion Gap 16 (12-20); Aspartate Amino Transferase 32 U/L (5-37); Blood Urea Nitrogen 10 mg/dL (9-16); Calcium 8.8 mg/dL (8.4-10.2); Carbon Dioxide 22 mmol/L (22-29); Chloride 108 mmol/L (96-108); Creatinine Clr Calc Pharmacy 114.8; Estimated Glomerular Filt Rate > 60; Potassium 4.3 mmol/L (3.3-5.1); Sodium 142 mmol/L (135-145); Total Protein 6.7 g/dL (6.5-8.0)
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
--- NOTE | 2025-01-12 23:17 | PC.NURSE ---
report given to [facility]
[2025-01-12 23:18] VITALS: BP 161/99; PULSE 76; RESP 18; TEMP 36.7; O2SAT 98
== END 2025-01-12 23:19 | disposition short-term general hospital (02) ==
PROVIDERS: Physician Assistant; Emergency Provider Emergency Medicine
DX: S21.111A Laceration without foreign body of right front wall of thorax without penetration into thoracic cavity, initial encounter (principal); R07.89 Other chest pain; F17.210 Nicotine dependence, cigarettes, uncomplicated; X99.9XXA Assault by unspecified sharp object, initial encounter; Y93.9 Activity, unspecified; Y92.9 Unspecified place or not applicable; Y99.8 Other external cause status; Z79.899 Other long term (current) drug therapy
CPT/HCPCS: 36415; 71045; 80053; 85025; 86850; 86900; 86901; 96361; 96374; 96375; 99285; J0690; J3010; J7120

== ENCOUNTER → 2025-01-12 22:05 | Outpatient (BNV) | payer MEDICAID, SELFPAY | PROVIDERS: Emergency Provider Emergency Medicine; Visit Provider Family Medicine | DX: J93.9 Pneumothorax, unspecified (principal) | CPT/HCPCS: 71045 ==

== ENCOUNTER 2025-02-26 19:15 | Outpatient (REF) | payer MEDICAID, SELFPAY ==
--- OUTSIDE RECORDS SUMMARY | 2025-02-26 17:40 | XMS_ITS | Encounter Summary ---
Author Organization [employer] Address [address] 7[address] [place] [address] Care Team Providers Care Configurator Name Role Phone Bharati Buchanan MD Primary Care Provider [phone] Encounter Details Date Type Department Care Team (Late st Contact Info) Description 02/26/2025 5:40 PM EDT Office Visit [facility] [address] [place], [place] [phone] Marj Delacruz FNP [address] [place], [place] [phone] Possible exposure to STI (Primary Dx) Social History Tobacco Use Types Packs/Day Years Used Date Smoking Tobacco: Some Days Cigarettes Passive Smoke Exposure: Never Smokeless Tobacco: Never Alcohol Use Standard Drinks/Week Comments Never 0 (1 standard drink = 0.6 oz pur e alcohol) Depression Answer Date Recorded Patient Health Questionnaire-9 Score 12 09/27/2023 Patient Health Questionnaire-9 Score 12 09/27/2023 Last PHQ-9: Questionnaire Data Not on file 0 09/27/2023 Housing Stability Answer Date Recorded What is your housing situation today? I have abhinav cervantes 04/04/[address] you li ve. Do you have problems with any of the following? None of the above 04/04/2023 Food Insecurity Answer Date Recorded Within the past 12 months, y ou worried that your food would run out before you got money to buy more: Never True 04/04/2023 Within the past 12 months,th e food you bought just didn't last and you didn't have enough money to get more: Never True 10/2022 Transportation Answer Date Recorded In the past 12 months, has l ack of transportation kept you from medical appts, meetings, work or from getting things needed for daily living? No 04/04/2023 Utilities Answer Date Recorded In the past 12 months, has t he electric, gas, oil or water [employer] threatened to shut off services in your home? No 04/04/2023 Depression Answer Date Recorded Patient Health Questionnaire-2 Score 4 09/27/2023 Sex and Gender Information Value Date Recorded Sex Assigned at Male 03/29/2022 10:26 AM EDT Legal Sex Male 10:26 AM EDT Gender Identity Male 03/29/2022 10:26 AM EDT Sexual Orientation Straight 03/29/2022 10 :26 AM EDT documented as of this encounter Last Filed Vital Signs Vital Sign Reading Time Taken Comments Blood Pressure 142/93 02/26/2025 5:29 PM EDT Pulse 95 02/26/2025 5:29 PM EDT Temperature 36.1 C (96.9 F) 02/26/2025 5:29 PM EDT Respiratory Rate - - Oxygen Saturation 95% 02/26/2025 5:29 PM EDT Inhaled Oxygen Concentration - - Weight 97.3 kg (214 lb 9.6 oz) 02/26/2025 5:29 P M EDT Height - - Body Mass Index 32.63 11/11/2023 1:58 PM EDT documented in this encounter Progress Notes * NAOMI Harper - 02/26/2025 5:40 PM EDT Subjective Patient ID: Parish العلي is a 34 y.o. male. Parish reports he was tested for STI on Tuesday but had unprotected sex with a new partner on Tuesday and is concerned he may have been exposed. He is interested in PEP. He is also interested in retesting for STI due to possible exposure. Review of Systems Constitutional: Negative for activity change, appetite change, fatigue and fever. HENT: Negative for congestion, nosebleeds, postnasal drip, rhinorrhea, sneezing and sore throat. Eyes: Negative for pain and discharge. Respiratory: Negative for cough, chest tightness, shortness of breath and wheezing. Cardiovascular: Negative for chest pain, palpitations and leg swelling. Gastrointestinal: Negative for abdominal pain, constipation, diarrhea, nausea and vomiting. Endocrine: Negative for polydipsia, polyphagia and polyuria. Genitourinary: Negative for dysuria and flank pain. Skin: Negative for rash and wound. Neurological: Negative for weakness and headaches. Hematological: Negative for adenopathy. Psychiatric/Behavioral: Negative for agitation. The patient is not nervous/anxious. Objective BP (!) 142/93 (BP Location: Left arm, Patient Position: Sitting, BP Cuff Size: Adult) Pulse 95 Temp 96.9 ??F (36.1 ??C) (Temporal) Wt 214 lb 9.6 oz (97.3 kg) SpO2 95% BMI 32.63 kg/m?? Physical Exam Constitutional: Appearance: Normal appearance. HENT: Head: Normocephalic. Right Ear: External ear normal. Left Ear: External ear normal. Nose: Nose normal. Eyes: Conjunctiva/sclera: Conjunctivae normal. Cardiovascular: Rate and Rhythm: Normal rate and regular rhythm. Pulmonary: Effort: Pulmonary effort is normal. Breath sounds: Normal breath sounds. Musculoskeletal: General: Normal range of motion. Cervical back: Normal range of motion and neck supple. Skin: General: Skin is warm and dry. Neurological: General: No focal deficit present. Mental Status: He is alert and oriented to person, place, and time. Psychiatric: Thought Content: Thought content normal. Assessment/Plan Diagnoses and all orders for this visit: Possible exposure to STI Doxycycline 200 mg x 1 Encouraged to practice safe sex practices Complete all prescribed medication. Discussed HIV prevention with PrEP. RTC PRN - Chlamydia/N. Gonorrhoeae RNA, TMA, Urogenitial; Future Other orders - doxycycline (Vibra-Tabs) 100 MG tablet; Take 2 tablets (200 mg) by mouth Once per day for 1 day. Take with a full glass of water and do not lie down for at least 30 minutes after. documented in this encounter Plan of Treatment Upcoming Encounters Date Type Department Care Team (Late st Contact Info) Description 04/05/2025 1:00 PM EST Office Visit [facility] MED & PEDS [address] [place] [address] Bharati Buchanan MD [address] [place] [address] Scheduled Orders Name Type Priority Associated Diagnoses Orde r Schedule Chlamydia/N. Gonorrhoeae RNA, TMA, Urogenitial Microbiology Routine Possible exposure to STI Expected: 02/26/2025 (Approximate), Expires: 02/26/2026 documented as of this encounter Visit Diagnoses Diagnosis Possible exposure to STI- Primary documented in this encounter Additional Health Concerns Assessment Noted Time PHQ-9 Depression Total Score: 12 024 3:28 PM EDT documented as of this encounter Care Teams Configurator Relationship Specialty Start Date End Date Bharati Buchanan MD [address] [place] [id number] PCP - General Family Medicine 04/06/21 documented as of this encounter
--- OUTSIDE RECORDS SUMMARY | 2025-02-27 12:46 | XMS_ITS | Encounter Summary ---
Author Organization [employer] Address [address] [place] [address] Care Team Providers Care Wire Machine Operator Name Role Phone Bharati Buchanan MD Primary Care Provider [phone] Reason for Visit * Reason Onset Date Comments Med Refill 06/28/2023 Encounter Details Date Type Department Care Team (Late st Contact Info) Description 06/28/2023 Telephone [facility] MEDICINE [address] [place], [place] [phone] Bharati Buchanan MD [address] [place], [place] [phone] Med Refill Social History Tobacco Use Types Packs/Day Years Used Date Smoking Tobacco: Every Day Cigarettes Passive Smoke Exposure: Never Smokeless Tobacco: Never Alcohol Use Standard Drinks/Week Comments Never 0 (1 standard drink = 0.6 oz pur e alcohol) Housing Stability Answer Date Recorded What is [...] t he electric, gas, oil or water company threatened to shut off services in your home? No 04/04/2023 Depression Answer Date Recorded Patient Health Questionnaire-2 Score 3 05/06/2022 Sex and Gender Information Value Date Recorded Sex Assigned at Male 03/29/2022 10:26 AM EDT Legal Sex Male 10:26 AM EDT Gender Identity Male 03/29/2022 10:26 AM EDT Sexual Orientation Straight 03/29/2022 10 :26 AM EDT documented as of this encounter Miscellaneous Notes * Telephone Encounter - Rui Stanford - 06/28/2023 2:59 PM EST TC from pt requesting medication refill. Medications needing refill : cholecalciferol (Vitamin D-3) 25 MCG (1000 UT) capsule and amLODIPine (Norvasc) 5 MG tablet To be sent to: [facility]/pharmacy [address] [place] [address] documented in this encounter Plan of Treatment Upcoming Encounters Date Type Department Care Team (Late st Contact Info) Description 04/05/2025 1:00 PM EST Office Visit [facility] MED & PEDS [address] [place] [address] Bharati Buchanan MD [address] [place] [address] documented as of this encounter Visit Diagnoses Not on filedocumented in this encounter Care Teams Wire Machine Operator Relationship Specialty Start Date End Date Bharati Buchanan MD [address] [place] [address] PCP - General Family Medicine 04/06/21 documented as of this encounter
--- OUTSIDE RECORDS SUMMARY | 2025-02-27 12:46 | XMS_ITS | Encounter Summary ---
Author Organization [employer] Address [address] [place] [address] Care Team Providers Care Mechanical Maintenance Engineer Name Role Phone Bharati Buchanan MD Primary Care Provider [phone] Reason for Visit * Reason Comments Med Change Request Encounter Details Date Type Department Care Team (Late st Contact Info) Description 08/18/2023 Refill [facility] [address] [place], [place] [phone] Name, MD Davy [address] [place], [place] [phone] Social History Tobacco Use Types Packs/Day Years [...] AM EDT documented as of this encounter Plan of Treatment Upcoming Encounters Date Type Department Care Team (Late st Contact Info) Description 04/05/2025 1:00 PM EST Office Visit [facility] MED & PEDS [address] [place] [address] Bharati Buchanan MD [address] [place] [address] documented as of this encounter Visit Diagnoses Not on filedocumented in this encounter Care Teams Mechanical Maintenance Engineer Relationship Specialty Start Date End Date Bharati Buchanan MD [address] [place] [address] PCP - General Family Medicine 04/06/21 documented as of this encounter
--- OUTSIDE RECORDS SUMMARY | 2025-02-27 12:46 | XMS_ITS | Clinical Summary ---
Author Organization [employer] Address [address] [facility] 7t [place] [address] Care Team Providers Care Tele Tech Name Role Phone Bharati Buchanan MD Primary Care Provider [phone] Allergies Active Allergy Reactions Criticality Noted Date Comments Bee Venom Hives,Angioedema Low 08/05/2015 Dog Epithelium (Canis Lupus Familiaris) Itching Low 08/05/2015 Medications * This document contains information received from the source organization and may not represent a complete record from that organization. docusate sodium (Colace) 100 MG capsule Take 2 capsules by mouth 2 times daily. 2 Active polyethylene glycol, PEG, 3350 (MiraLax) 17 GM/SCOOP powder Take 17 g by mouth if needed each day (constipation). 2 Active Blood Pressure kitIndications: Hypertension, unspecified type Use to monitor BP daily and prn 1 kit 3 Active Mometasone Furoate (Asmanex HFA) 100 MCG/ACT aerosol Inhale 200 mcg 2 times daily. 13 g 3 4 Active EPINEPHrine (EpiPen 2-Julian) 0.3 MG/0.3ML injection syringeIndicati ons:Allergy, initial encounter Inject 0.3 mL into the shoulder, thigh, or buttocks for allergic reaction and call 911 1 each 2 4 Active varenicline (Chantix) 1 MG tablet Take 1 tablet (1 mg) by mouth 2 times daily. 0.5 mg orally once daily for 3 days, then 0.5 mg twice daily on days 4 through 7, and then 1 mg twice daily thereafter for 12 weeks of treatment. Take with full glass of water. 168 tablet 1 4 Active albuterol 108 (90 Base) MCG/ACT inhalerIndicati ons:Shortness of breath Inhale 2 puffs every 4 (four) hours if needed for wheezing or shortness of breath. 18 g 1 4 Active albuterol (2.5 MG/3ML) 0.083% nebulizer solution Take 3 mL (2.5 mg) by nebulization every 4 (four) hours if needed for wheezing. 75 mL 11 4 Active amLODIPine (Norvasc) 10 MG tablet TAKE 1 TABLET BY MOUTH EVERY DAY 90 tablet 1 4 Active montelukast (Singulair) 10 MG tablet TAKE 1 TABLET BY MOUTH EVERY DAY 90 tablet 1 4 Active gabapentin (Neurontin) 300 MG capsule Take 2 capsules by mouth 3 times daily. X 7 days 5 Active doxycycline (Vibra-Tabs) 100 MG tablet Take 2 tablets (200 mg) by mouth Once per day for 1 day. Take with a full glass of water and do not lie down for at least 30 minutes after. 2 tablet 5 02/28/20 25 Active Active Problems Problem Noted Date Diagnosed Date Primary hypertension 09/27/2023 Assessment & Plan (09/27/2023 4:45 PM EDT): Discussed medications and refills as needed. Relevant Medication Amlodipine (Norvasc) 10 MG Tablet Mild intermittent asthma without complication Assessment & Plan (09/27/2023 4:43 PM EDT): Patient with wheezing symptoms, improved with [facility], reports sometimes it is difficult to use inhaler if he is having an exacerbation, will send nebulizer machine and solution, Needs PFT to confirm diagnosis. F/u on 10/17/2023. Prescribing Prednisone and Singulair to relieve wheezing. Relevant Medication Montelukast (Singulair)10 MG Tablet Prednisone (Deltasone) 50 MG Tablet Albuterol (2.5 MG/3MIL) 0.083% nebulizer solution Anxiety disorder, unspecified 09/27/2023 Assessment & Plan (10/04/2023 9:50 AM EDT): During IBH Consult Parish presenting with excessive worry/anxiety, difficulty controlling worry, restless/keyed up/On edge, easily fatigued, difficulty concentrating/Mind going blank , irritability, and sleep disturbance difficulty falling asleep; for a period of 0-6 mo, for all symptoms in the context of illness or family illness, marriage, and relationship issues. Parish feels distressed due to experiencing a lot of stress under family, marriage and work context. Root cause of sxs might be associated with recent complication with his health. PLAN: (check all that apply) New/Additional Services needed Off-site services for BH. Pt will be referred to OP individual therapy. Vitamin D deficiency 06/08/2022 Class 1 obesity 06/07/2022 Constipation 05/06/2022 Hemorrhoids 05/06/2022 Tobacco dependence syndrome 10/06/2015 Assessment & Plan (05/06/2022 10:51 AM EST): Mild URI symptoms, will send for swab Resolved Problems Problem Noted Date Diagnosed Date Resolved Date Sexually transmitted disease 05/06/2022 06/08/2022 Assessment & Plan (05/06/2022 10:51 AM EST): Patient w/ STI exposure and concerned. Had GC/Chlamydia sent in ED visit. Reports concern of little bumps on the tip of his penis (looks like perles). Swab obtain to send out for herpes PCR. Will send labs Viral upper respiratory tract infection 05/06/2022 06/08/2022 Encounters Date Type Department Care Team Description 02/26/2025 5:40 PM EDT Office Visit [facility] [address] [place] [address] Marj Delacruz FNP Possible exposure to STI (Primary Dx) 02/26/2025 Travel 02/20/2025 Telephone [facility] [address] [place] [address] Bharati Buchanan MD Appointment Request 01/22/2025 Telephone [facility] [address] [place] [address] Shweta Calle MD No Show 01/18/2025 Patient Outreach [facility] [address] [place] [address] Bharati Buchanan MD Transition Of Care (Tcm) (HDF-Scheduled) from Last 3 Months Immunizations Immunization Administration Dates Next Due DTaP 09/15/1995, 2,03/30/1991,01/28/1991,11/27/18 91 Hep B, Unspecified 07/28/2005,07/24/2004, 004 HiB, unspecified 03/30/1992,03/30/1991, 1,1990 MMR 02/27/1995,03/30/1992 Td (adult), unspecified 09/05/2003 Tdap 11/28/2018,10/06/2015 Varicella 09/27/1996 Social History Tobacco Use Types Packs/Day Years Used Date Smoking Tobacco: Some Days Cigarettes Passive Smoke Exposure: Never Smokeless Tobacco: Never Tobacco Cessation:Ready to Q uit: Not Asked; Counseling Given: Not Answered Alcohol Use Standard Drinks/Week Comments Never 0 [...] Orientation Straight 03/29/2022 10 :26 AM EDT Last Filed Vital Signs Vital Sign Reading Time Taken Comments Blood Pressure 142/93 02/26/2025 5:29 PM EDT Pulse 95 02/26/2025 5:29 PM EDT Temperature 36.1 C (96.9 F) 02/26/2025 5:29 PM EDT Respiratory Rate 20 11/11/2023 1:58 PM EDT Oxygen Saturation 95% 02/26/2025 5:29 PM EDT Inhaled Oxygen Concentration - - Weight 97.3 kg (214 lb 9.6 oz) 02/26/2025 5:29 P M EDT Height 172.7 cm (5' 8 ) 11/11/2023 1:58 PM EDT Body Mass Index 32.63 11/11/2023 1:58 PM EDT Plan of Treatment Upcoming Encounters Date Type Department Care Team (Late st Contact Info) Description 04/05/2025 1:00 PM EST Office Visit [facility] [address] [place] [address] Bharati Buchanan MD [address] [place] [address] Health Maintenance Due Date Last Done Comments Disability Screening 1990 Alcohol/Substance Use Screening 2002 Family Planning (PISQ) 2005 HPV Vaccines (1 - Male 3-dose series) 2005 Hepatitis A Vaccines (1 of 2 - Risk 2-dose series) 2009 Pneumococcal Vaccine: Pediatrics (0 to 5 Years) and At-Risk Patients (6 to 49) Years (1 of 2 - PCV) 2009 SDOH Screening 06/28/2023 06/28/2022 Depression Monitoring 03/28/2024 09/27/2023, 024 Tobacco Screening 11/10/2024 11/11/2023 COVID-19 Vaccine ( - season) 2025 Influenza Vaccine (#1) 2025 Lipid Panel 10/20/2028 10/21/2023, 03/01/2022 DTaP/Tdap/Td Vaccines (8 - Td or Tdap) 11/28/2028 11/28/2018, 10/06/2015, 09/05/2003, Additional history exists Zoster Vaccines (1 of 2) 2040 RSV Patients and Patients Aged 60 years or older (1 - 1-dose 75+ series) 2065 HIB Vaccines Completed 03/30/1992, 05/1990, 01/28/1991, Additional history exists Hepatitis B Vaccines Completed 07/28/2005, 07/24/2004, 09/05/2003 HIV Screening Completed 12/13/2022, 11/2022, 05/06/2022, Additional history exists Hepatitis C Screening Completed 12/13/2022 , 05/06/2022, 03/01/2022 IPV Vaccines Aged Out No longer eligi ble based on patient's age to complete this topic Meningococcal B Vaccine Aged Out No l onger eligible based on patient's age to complete this topic Meningococcal Vaccine Aged Out No santy kendal eligible based on patient's age to complete this topic RSV under 20 months Aged Out No longe r eligible based on patient's age to complete this topic Rotavirus Vaccines Aged Out No longer eligible based on patient's age to complete this topic Procedures Procedure Name Priority Date/Time Associated Diagnosis Comments LIPID PANEL, STANDARD Routine 10/21/2023 1:03 PM EDT Swelling of lower extremity HEPATITIS C ANTIBODY REFLEX Routine 12/13/2022 3:59 PM EDT HIV ANTIBODY/ANTIGEN ([place] [facility]) Routine 12/13/2022 3:59 PM EDT from Last 3 Months or Most Recently Relevant to Health Maintenance Results * (ABNORMAL) Lipid Panel, Standard (10/21/2023 1:03 PM EDT) Triglycerides 253(H) <150 mg/dL [facility] Comment:Desirable Triglyceri de: less than 150 mg/dLBorderline High Triglyceride 150-199 mg/dLHigh Triglyceride: 200-499 mg/dLVery High Triglyceride: greater than or equal to 5OO mg/dL Cholesterol 143 <200 mg/dL [facility] Comment:Desirable Cholestero l: less than 200 mg/dLBorderline High Cholesterol: 200-239 mg/dLHigh Cholesterol: greater than 239 mg/dL LDL Cholesterol Calculated 64 <100 mg/dL [facility] Comment:Desirable LDL: less than 100 mg/dLNear Optimal/Above Optimal LDL: 110- 129 mg/dLBorderline High LDL: 130-159 mg/dLHigh LDL: 160-189 mg/dLVery High LDL: greater than or equal to 190 mg/dL HDL Cholesterol 29(L) >40 mg/dL [facility] Comment:Desirable HDL: great er than 40 mg/dL Note: This HDL assay may give artificially low results in patients with liver disease. Blood Venous blood specimen / Unknown 10/21/2023 1:03 PM EDT 10/21/2023 2:06 PM EDT Bharati Buchanan MD LAB BLOOD ORDERABLES Final Re sult Performing Organization Address City/[facility]/ZIP Co de Phone Number [facility] [address] [place] [phone] * Hepatitis C Antibody Reflex (12/13/2022 3:59 PM EDT) Hepatitis C Antibody Nonreactive Nonreactive [facility] Comment:Antibodies to HCV no t detected; does not exclude early acuteHCV infection. 12/13/2022 3:59 PM EDT 12/13/2022 5:41 PM EDT [facility] External Provider LAB BLO OD ORDERABLES Final Result Performing Organization Address [facility] Co de Phone Number [facility] [address] [place] [phone] [phone] * HIV Ab/Ag (ENEDINA VALENTINE) (12/13/2022 3:59 PM EDT) HIV AB/AG Nonreactive Nonreactive [facility] Comment:HIV-1 p24 Ag and/or HIV-1/HIV-2 Ab not detected.A test result that is nonreactive does not exclude thepossibility of exposure to or infection with HIV-1 and/orHIV-2. Nonreactive results in this assay for individualswith prior exposure to HIV-1 and/or HIV-2 may be due toantigen and antibody levels that are below the limit ofdetection of this assay.[facility] HIV Ag/Ab Combo assay result andsupplemental assay results should be interpreted inconjunction with the patient's clinical presentation,history and other laboratory results. If the results areinconsistent with clinical evidence, additional testing issuggested to confirm the result. 12/13/2022 3:59 PM EDT 12/13/2022 5:41 PM EDT [facility] External Provider LAB BLO OD ORDERABLES Final Result Performing Organization Address City/State/[facility] Co de Phone Number [facility] [address] [place] [phone] from Last 3 Months or Most Recently Relevant to Health Maintenance Insurance [facility] [employer] Care Teams Tele Tech Relationship Specialty Start Date End Date Bharati Buchanan MD [address] [place] [address] PCP - General Family Medicine 04/06/21
--- OUTSIDE RECORDS SUMMARY | 2025-02-27 12:46 | XMS_ITS | Clinical Summary ---
Author Organization [address] Address [address] [place] [phone] Phone Care Team Providers Care Concrete Pourer Name Role Phone Bharati Buchanan MD Primary Care Provider [phone] Social History Tobacco Use Types Packs/Day Years [...] Years) (1 of 2 - PCV) 2009 HPV Vaccines (1 - 3-dose SCD M series) 2017 HIV Screening 05/09/2022 Hepatitis C Screening 05/09/2022 Social Influencers of Health Screening 05/09/2022 Depression Screening 05/30/2024 COVID-19 Vaccine (2023-2 5 season) 2025 Influenza Vaccine (#1) 2025 RSV Immunization Adult Patie nts (1 - 1-dose 75+ series) 2065 HIB Vaccines Aged Out No longer eligi [...] age to complete this topic Care Teams Concrete Pourer Relationship Specialty Start Date End Date Bharati Buchanan MD [address] [place] [phone] PCP - General 03/02/22
--- OUTSIDE RECORDS SUMMARY | 2025-02-27 12:46 | XMS_ITS | Encounter Summary ---
Author Organization [employer] Address [address] [facility] [address] [place] [address] Care Team Providers Care Hanger Off Name Role Phone Bharati Buchanan MD Primary Care Provider [phone] Encounter Details Date Type Department Care Team (Latest Contact Info) Description 02/26/2025 Travel Social History Tobacco Use Types Packs/Day Years [...] is your housing situation today? I have abhinavanita cervantes 04/04/[address] you [...] Description 04/05/2025 1:00 PM EST Office Visit [facility] [address] [place] [address] Bharati Buchanan MD [address] [place] [address] documented as of this encounter Visit Diagnoses Not on filedocumented in this encounter Additional Health Concerns Assessment Noted Time PHQ-9 Depression Total Score: 12 024 3:28 PM EDT documented as of this encounter Care Teams Hanger Off Relationship Specialty Start Date End Date Bharati Buchanan MD [address] [place] [phone] PCP - General Family Medicine 04/06/21 documented as of this encounter
--- OUTSIDE RECORDS SUMMARY | 2025-02-27 12:46 | XMS_ITS | Encounter Summary ---
Author Organization [employer] [facility] Address [address] [facility] [address] [place] [address] Care Team Providers Care Tip Out Worker Name Role Phone Bharati Buchanan MD Primary Care Provider [phone] Encounter Details Date Type Department Care Team (Late Contact Info) Description 05/10/2022 Orders Only [facility] [address] [place], [place] [phone] Bharati Buchanan MD [address] [place], [place] [phone] Leukocytosis, unspecified type (Primary Dx) Social History [...] Encounters Date Type Department Care Team (Late Contact Info) Description 04/05/2025 1:00 PM EST Office Visit [facility] [address] [place], [place] [phone] Bharati Buchanan MD [address] [place], [place] [phone] Scheduled Orders Name Type Priority Associated Diagnoses Orde r Schedule CBC (includes Differential and Platelets) with Smear Review Lab Routine Leukocytosis, unspecified type Expected: 05/10/2022 (Approximate), Expires: 05/10/2023 documented as of this encounter Visit Diagnoses Diagnosis Leukocytosis, unspecified type- Primary documented in this encounter Care Teams Tip Out Worker Relationship Specialty Start Date End Date Bharati Buchanan MD [address] [place] [phone] PCP - General Family Medicine 04/06/21 documented as of this encounter
--- OUTSIDE RECORDS SUMMARY | 2025-02-27 12:46 | XMS_ITS | Encounter Summary ---
Author Organization [employer] Address [address] [facility] [address] [place] [address] Care Team Providers Care Price Analyst Name Role Phone Bharati Buchanan MD Primary Care Provider [phone] Reason for Visit * Reason Onset Date Comments Appointment Request 06/28/2023 Encounter Details Date Type Department Care Team (Late st Contact Info) Description 06/28/2023 Telephone [facility] [address] [place], [place] [phone] Bharati Buchanan MD [address] [place], [place] [phone] Appointment Request Social History Tobacco Use Types Packs/Day Years [...] Miscellaneous Notes * Telephone Encounter - Rui Perez - 06/28/2023 3:02 PM EST Tc from patient requesting a appt with PCP states has not seen PCP in a while and would like to geta check up documented in this encounter Plan of Treatment Upcoming Encounters Date Type Department Care Team ([facility] st Contact Info) Description 04/05/2025 1:00 PM EST Office Visit [facility] [address] [place] [address] Bharati Buchanan MD [address] [place] [address] documented as of this encounter Visit Diagnoses Not on filedocumented in this encounter Care Teams Price Analyst Relationship Specialty Start Date End Date Bharati Buchanan MD [address] [place] [address] PCP - General Family Medicine 04/06/21 documented as of this encounter
--- OUTSIDE RECORDS SUMMARY | 2025-02-27 12:46 | XMS_ITS | Encounter Summary ---
Author Organization [employer] Address [address] [facility] [address] [place] [address] Care Team Providers Care School Psychology Specialist Name Role Phone Bharati Buchanan MD Primary Care Provider [phone] Reason for Visit * Reason Onset Date Comments Appointment Request 07/23/2024 Encounter Details Date Type Department Care Team (Late st Contact Info) Description 07/23/2024 Telephone [facility] [address] [place], [place] [phone] Bharati Buchanan MD [address] [place], [place] [phone] Appointment Request Social History Tobacco Use Types [...] encounter Miscellaneous Notes * Telephone Encounter - Alison Farmer - 07/23/2024 2:44 PM EST Tc from pt requesting appointment as he will like to discuss some concerns with pcp. documented in this encounter Plan of Treatment Upcoming Encounters Date Type Department Care Team (Late st Contact Info) Description 04/05/2025 1:00 PM EST Office Visit [facility] [address] [place] [address] Bharati Buchanan MD [address] [place] [address] documented as of this encounter Visit Diagnoses Not on filedocumented in this encounter Additional Health Concerns Assessment Noted Time PHQ-9 Depression Total Score: 12 024 3:28 PM EDT documented as of this encounter Care Teams School Psychology Specialist Relationship Specialty Start Date End Date Bharati Buchanan MD [address] [place] [address] PCP - General Family Medicine 04/06/21 documented as of this encounter
[2025-02-27 13:06] LABS: CT PCR Urine NOT DETECTED (Not Detect.); NG PCR Urine NOT DETECTED (Not Detect.)
== END 2025-02-26 19:16 | disposition home or self-care (01) ==
LOC: HO.HHCLNP 19:15
PROVIDERS: Visit Provider Nurse Practitioner Family
DX: Z20.2 Contact with and (suspected) exposure to infections with a predominantly sexual mode of transmission (principal)
CPT/HCPCS: 87491; 87591